=== PATIENT | male | born 1940 | race Caucasian/White ===

== ENCOUNTER 2022-01-25 09:36 | Outpatient (CLI) | payer MEDICARE, OTHER, SELFPAY ==
--- NOTE | 2022-01-25 09:45 | CRLHL7_ITS ---
For Patients: As a result of the Century Cures Act, medical imaging exams and procedure reports are released immediately into your electronic medical record. You may view this report before your referring provider. If you have questions, please contact your health care provider. INDICATION: stage 4 chronic kidney disease TECHNIQUE: Grayscale, color Doppler and power Doppler evaluation of the renal arteries performed. COMPARISON: 01/12/2020, 11/05/2013 FINDINGS: BILATERAL RENAL ARTERY DUPLEX ULTRASOUND ABDOMINAL AORTA: Peak systolic velocity = 106 cm/s. No aortic aneurysm. RIGHT KIDNEY: 8.7 Cm in length. There is no hydronephrosis. Renal cortex measures 1 cm. Peak systolic velocity = 179 cm/second at the proximal right renal artery. Renal artery to aortic peak systolic velocity ratio = 1.7 Resistive indices: 0.8 Renal vein = patent LEFT KIDNEY: 9.2 cm in length. There is no hydronephrosis. Renal cortex measures 9 millimeters. Peak systolic velocity = 86 cm/second Renal artery to aortic peak systolic velocity ratio = 0.8 Resistive indices: 0.8 Renal vein = patent IMPRESSION: Renal cortical atrophy bilaterally without hydronephrosis. Chronic elevation of the right renal artery peak systolic velocity measuring up to 179 cm/second at the proximal aspect. This is similar to the 2013 examination consistent with chronic mild renal artery stenosis. Normal velocities within the left renal artery. Elevated resistive indices consistent with intrinsic renal disease. Dictated by Gonzales Patel MD @ 01/25/2022 11:37:22 AM (Electronically Signed)
== END 2022-01-25 09:37 | disposition home or self-care (01) ==
LOC: US 09:39
PROVIDERS: PCP Family Medicine; Visit Provider Internal Medicine Nephrology
DX: N18.4 Chronic kidney disease, stage 4 (severe) (principal)
CPT/HCPCS: 76775; 93975

== ENCOUNTER 2022-12-04 12:43 | Outpatient (CLI) | payer MEDICARE, OTHER, SELFPAY ==
--- NOTE | 2022-12-04 13:00 | MR_ITS ---
[address] [address] Phone:?[phone] Fax:?[phone] Referring Physician Information: Dayton Archuleta M.D. [address] [facility] [address] Phone:?[phone] Fax:?[phone] Patient:Rivera Mesa D.O.B:?[id number] Sex:?Male Phone:?[phone] [facility] MRN:?[id number] Exam Date:?12/04/2022 EXAM: MRI OF THE RIGHT SHOULDER CLINICAL INFORMATION: The patient is an 82-year-old with right shoulder pain. Evaluate for rotator cuff tear. PRIOR SURGERY: None reported. COMPARISON STUDIES: There are no prior studies available for comparison. TECHNICAL INFORMATION: Using a 1.5T MR scanner and a localizing shoulder surface coil: 3.0 mm?coronal obliques: PD, T2, STIR 3.0 mm?sagittal obliques: PD, T2 3.0 mm?axials: PD, T2 FINDINGS: Articular/Extraarticular collections: Effusion: Mild. Subacromial/subdeltoid: Mild to moderate fluid is seen within the subacromial/subdeltoid bursa, in keeping with changes of bursitis. Subcoracoid: No evidence for bursitis. Osseous structures: Proximal humerus: Cortical irregularity and subcortical cystic changes can be seen involving the greater tuberosity region. The findings are in keeping with the rotator cuff pathology discussed below. There is no evidence for greater or lesser tuberosity fracture. No Hill-Sachs or reverse Hill-Sachs lesion is identified. Glenoid: No acute bony abnormality of the glenoid fossa or glenoid neck can be seen. Acromioclavicular joint: Mild to moderate changes of acromioclavicular joint arthrosis can be seen. Coracoacromial arch: Acromion morphology: Type I. No evidence for os acromiale. Acromiohumeral space: Within normal limits. Coracohumeral space: Within normal limits. Rotator cuff and deltoid: Supraspinatus: The supraspinatus tendon is abnormal in appearance. There are moderate changes of supraspinatus tendinosis with superimposed partial-thickness intrasubstance and deep surface tearing of the supraspinatus tendon fibers, seen to best advantage on coronal series 4 image 13 and measuring approximately 15 mm in greatest dimension. The tearing involves up to 50% of the tendon thickness. No full-thickness tearing or retraction is seen. No atrophic changes of the supraspinatus muscle belly are identified. Infraspinatus: Mild to moderate infraspinatus tendinosis can be seen. There is no evidence for full or partial-thickness tearing. No atrophic changes of the infraspinatus muscle belly are present. Teres minor: No evidence for tendinosis, tearing, or associated muscle belly atrophy. Subscapularis: Mild to moderate subscapularis tendinosis can be seen. There is no evidence for full or partial-thickness tearing. No atrophic changes of the subscapularis muscle belly are noted. Deltoid: No evidence for strain or tearing. Biceps tendon: The intra-articular and biceps sulcus portions of the biceps tendon are normal. There is no evidence for rupture, dislocation, or subluxation. Glenohumeral joint and labrum: Articular Cartilage: No well-defined full-thickness chondral defects are seen along the articular surfaces of the glenohumeral articulation. No definite osteoarthritic changes are present. Labrum: Degeneration, blunting, and irregularity of the glenoid labrum can be seen without definite areas of well-defined tearing. No paralabral ganglion cyst formation is seen. Capsular Soft Tissues: Nonspecific thickening of the capsular structures of the glenohumeral articulation can be seen in the region of the axillary recess and rotator cuff interval. The findings may relate to changes of adhesive capsulitis. CONCLUSION: 1. Supraspinatus tendinosis with superimposed partial-thickness intrasubstance and deep surface tearing of the supraspinatus tendon fibers. No full-thickness tearing or retraction is seen. 2. Mild to moderate infraspinatus and subscapularis tendinosis. 3. Mild to moderate acromioclavicular joint arthrosis. 4. No osteoarthritic changes of the glenohumeral articulation are seen. 5. Degeneration, blunting, and irregularity of the glenoid labrum. 6. Nonspecific capsular thickening, possibly related to adhesive capsulitis. 7. Mild glenohumeral joint effusion and mild to moderate subacromial/subdeltoid bursitis. AEC Electronically signed on 12/04/2022 3:22:00 PM by Romeo Henriquez M.D.
== END 2022-12-04 12:44 | disposition home or self-care (01) ==
LOC: MRI 12:46
PROVIDERS: PCP Family Medicine; Visit Provider Orthopaedic Surgery Sports Medicine
DX: M25.511 Pain in right shoulder (principal); M75.101 Unspecified rotator cuff tear or rupture of right shoulder, not specified as traumatic; M19.211 Secondary osteoarthritis, right shoulder; M75.01 Adhesive capsulitis of right shoulder; M25.411 Effusion, right shoulder
CPT/HCPCS: 73221

== ENCOUNTER 2023-01-02 11:15 | Outpatient (RCR) | payer MEDICARE, OTHER, SELFPAY ==
--- NOTE | 2022-12-14 10:03 | PT.OPEX ---
PT [place] [facility] Eval PT [facility] Outpatient Eval Start: 12/14/22 07:54 Freq: Status: Active Protocol: Document 12/14/22 07:55 AAKASH (Rec: 12/14/22 10:01 AAKASH [id number]) E-signed By Luh Helton, PT Physical Therapy Outpatient Evaluation Insurance Information Recert Due Date 03/10/23 Insurance Name Medicare B,[employer] Medical Diagnosis Right shoulder rotator cuff tear Treating Diagnosis Right shoulder pain, limited shoulder ROM, gross UE weakness Referring MD Archuleta Subjective Subjective Baldev presents to PT with primary complaint of right shoulder pain with initial onset July 2022 when he was reaching out to the side and felt a pop in his shoulder. Denies radicular symptoms. Was very limited with ROM but feels that has been gradually improving. Now still having pain with reaching up out to the side and rotating the shoulder out to the side. Mainly limited with playing pickleball, reaching into cupboard, having to modify how he reaches up to wash his hair. MRI of the right shoulder dated 12/04/2022 from [facility] shows following: Supraspinatus tendinosis with a partial-thickness (up to 50% ) intrasubstance and deep surface tearing. No full- thickness tearing evident. Mild to moderate infraspinatus and subscapularis tendinosis. Moderate AC joint arthrosis. No significant glenohumeral OA appreciated. Glenoid labral degenerative tearing and blunting. Mild glenohumeral joint effusion. Moderate subacromial/subdeltoid bursitis. Pain Comments 2-3/10 worst Date of Last Physician Visit 12/12/22 Current Work Status Retired Objective Other/Pertinent Objective Standing UE AROM (R/L): -ER0: 59/70 -Abd: 149/170 -FF: 126/159 -IR: T7/T7 UE Strength (R/L): -ER0: R: 4-/5, L: 5/5 -IR0: R: 5/5, L: 5/5 -FF: R: 4/5, L: 5/5 -Abduction: R: 4-/5, L: 4+/5 -Mid Trap: R: 4/5, L: 4+/5 -Lower Trap: R: 4-/5, L: 4/5 Special tests deferred d/t imaging results noted above Functional Test Performed & Score QuickDASH: 29.5% Assessment Assessment/Impression Patient is an 82 year old male presenting to physical therapy for evaluation and treatment of right shoulder pain. Patient presents with limited shoulder flexion, abduction and ER, shoulder weakness with R ER, abd, ff and periscapular B, poor postural positioning. These impairments are limiting the patients ability to play pickleball without pain, reach out to the side and into cupboards. Patient appears motivated to participate in PT and presents with good prognosis to improve mobility, strength, proprioception and return to functional activities with skilled physical therapy intervention. Primary Functional Limitations play pickleball without pain, reach out to the side and into cupboards Plan of Care Rehabilitation Potential Good Physical Therapy Goals Improve ER0 to 70 to improve ease of transfers and ADL's, by 6 weeks. Improve FF tolerance to increase ease of ADL's /daily care, by 6 weeks. Pt will tolerate gradual progression of AROM to facilitate progression through POC, by 8 weeks. Patient will exhibit full shoulder ROM, in order to facilitate greater ease with ADLs and progression through POC, by 12 weeks. Pt will exhibit RC and Scapular Stab strength of at least 4+/5 to allow progression back to normal and desired activities without pain, by 12 weeks. Patient will be independent in self-management of shoulder and shoulder related symptoms, by 12 weeks. Treatment Plan/Direct Interventions Ice/Cold/Vasopneumatic,Joint Mobilization,Manual Therapy, Neuromuscular Re-ed,Self-Care/ Home Management,Therapeutic Activities,Therapeutic Exercises Frequency/Duration 1x/wk for 6 weeks with additional 4 sessions prn based on progress Patient Will Be Discharged From Therapy Completion of LTG(s), Independent w/HEP, Independently Progressing Evaluation Billing Untimed Code Treatment Minutes 25 Complexity Low Certification Information Initial Certification Date 12/14/22 Ending Certification Date 03/10/23 Provider Signature Shows Agreement With POC & Medical Necessity Physician Signature & Date Requested Please Sign/Date Here Physician Comment/Change : Physician NPI Number #
== END 2023-03-30 15:57 | disposition home or self-care (01) ==
PROVIDERS: PCP Family Medicine; Visit Provider Orthopaedic Surgery Sports Medicine
DX: M75.101 Unspecified rotator cuff tear or rupture of right shoulder, not specified as traumatic (principal); M19.011 Primary osteoarthritis, right shoulder; M25.511 Pain in right shoulder; R53.1 Weakness; Z74.09 Other reduced mobility; Z51.89 Encounter for other specified aftercare
CPT/HCPCS: 97110; 97161

== ENCOUNTER 2024-04-20 11:15 | Inpatient (IN) | payer MEDICARE, SELFPAY ==
[2024-04-20 11:35] VITALS: BP 150/69; PULSE 48; RESP 16; TEMP 35.4; O2SAT 97; BMI 24.5
--- NOTE | 2024-04-20 11:53 | ED_ITS ---
HPI - General Adult General Date Seen: 04/20/24 Chief complaint: Unspecified Complaint, Adult Stated complaint: altered mental status Time Seen by Provider: 04/20/24 11:53 History of Present Illness HPI narrative: This is an 83-year-old male presenting to the ER today with his family. They are concerned about and new altered mental status. He has been more drowsy than normal and has had a new tremor for the past few weeks. He does not have any previous records in our [facility]. He does have records in the [facility] system. According to that record he has a history of hypertension, high cholesterol, renal artery stenosis, renal hyperparathyroidism , hyperkalemia, chronic stage 4 kidney disease. Creatinine was 4.22 and BUN was 74 on February 18. Prior to that creatinine was 3.92 and BUN was 64 on November 27. He apparently follows with a kidney specialist but is not on dialysis yet. The most recent. Family practice progress note was from January. No mention of kidney function for that noted above. Most recent nephrology note in the [email or web address] system was from june. Patient presents to the ER today with his son for evaluation of generalized fatigue, insomnia, and tremor. Patient notes that he has had a mild tremor affecting both sides of his body that started about 10 or 12 days ago on roughly April 08 (2 or 3 days after his most recent concert). It is also associated with some mild gait instability. But no falls. No focal weakness or numbness. Also for the past several days he has no difficulty sleeping. He is not anxious or having mind racing or any other symptoms that keep him up. He just can not fall asleep. For instance, 3 days ago, on he was up till 4 or 5:00 a.m. and then was sleeping all morning until about 10 30 when his son came to check on him. With his sleepiness is he has just had some generalized fatigue. He normally plays pickleball 3 times per week, but has been able to go play pickleball since last Sunday. He is not having any focal weakness. No numbness. No headache. No trouble with his vision. He is not having any chest pain. No palpitations. No trouble breathing. He does have some chronic peripheral edema with a trace of edema in both ankles that is stable and not worse or better lately. He does takes torsemide 20 mg daily because of his kidney disease. He can not recall for sure when the last time he saw his search engine optimization specialist but probably in January. He is due for a checkup every 3 or 4 months. He has not had any trouble with urination. Is normal yellow urine output. Bowel movements have been normal and brown. No diarrhea or constipation. No black or bloody stools. No abdominal pain. Appetite has been normal. No nausea vomiting. No falls. No head trauma. He does not take any anticoagulants. No recent cough. No fever. Related Data Home Medications ?Medication ?Instructions ?Recorded ?Confirmed amlodipine 5 mg tablet 10 mg PO DAILY 11/22/22 04/20/24 atenolol 50 mg tablet 50 mg PO QDAY 11/22/22 04/20/24 atorvastatin 10 mg tablet 20 mg PO QDAY 11/22/22 04/20/24 carvedilol 12.5 mg tablet 12.5 mg PO Q12H 11/23/22 04/20/24 losartan 50 mg tablet 25 mg PO DAILY 04/20/24 04/20/24 torsemide 20 mg tablet 20 mg PO DAILY 04/20/24 04/20/24 Allergies Allergy/AdvReac Type Severity Reaction Status Date / Time No Known Drug Allergies Allergy Verified 04/20/24 11:47 [facility] Medical History (Updated 04/20/24 @ 15:01 by Devika Ochoa MD) Renal artery stenosis ?I70.1 - Atherosclerosis of renal artery (ICD-10) Prediabetes ?R73.03 - Prediabetes (ICD-10) Essential hypertension ?I10 - Essential (primary) hypertension (ICD-10) Anemia in chronic kidney disease (CKD) ?N18.9 - Chronic kidney disease, unspecified (ICD-10) ?D63.1 - Anemia in chronic kidney disease (ICD-10) CKD (chronic kidney disease) stage 5, GFR less than 15 ml/min ?N18.5 - Chronic kidney disease, stage 5 (ICD-10) Elevated cholesterol ?E78.00 - Pure hypercholesterolemia, unspecified (ICD-10) Hypertension ?I10 - Essential (primary) hypertension (ICD-10) Surgical History (Updated 04/20/24 @ 15:01 by Devika Ochoa MD) History of renal angiogram ?Z86.79 - Personal history of other diseases of the circulatory system (ICD- 10) History of tonsillectomy and adenoidectomy ?Z90.89 - Acquired absence of other organs (ICD-10) History of phacoemulsification of cataract of right eye with intraocular lens implantation (03/11/14) ?Z98.41 - Cataract extraction status, right eye (ICD-10) ?Z96.1 - Presence of intraocular lens (ICD-10) History of phacoemulsification of cataract of left eye with intraocular lens implantation (03/24/14) ?Z98.42 - Cataract extraction status, left eye (ICD-10) ?Z96.1 - Presence of intraocular lens (ICD-10) History of YAG laser capsulotomy of lens of right eye (08/02/16) ?Z98.41 - Cataract extraction status, right eye (ICD-10) History of YAG laser capsulotomy of lens of left eye (12/11/18) ?Z98.42 - Cataract extraction status, left eye (ICD-10) Exam Narrative: Exam Narrative: Constitutional: Appears well-developed and well-nourished. Alert. Conversant but somewhat slow and thoughtful in his responses. Son help supplement his history. Overall, he is Non toxic. HENT: Head: Atraumatic. Nose: Nose normal. Mouth/Throat: Oral mucosa is clear and moist. no trismus. Pharynx normal. Tonsils symmetric. No tonsillar enlargement, erythema, or exudate. Eyes: Conjunctivae normal. EOM normal. Pupils equal, round, and reactive to light. No scleral icterus. Neck: Normal range of motion. Neck supple. No tracheal deviation present. No JVD Cardiovascular: Bradycardic, regular rhythm. No gallop. No friction rub. No murmur heard. Symmetric radial artery pulses Pulmonary/Chest: Effort normal. No stridor. No respiratory distress. No wheezes. No rales. No rhonchi . No tenderness. Abdominal: Soft. No distension. No mass. No tenderness. No rebound. No guarding. Musculoskeletal: RUE: Normal range of motion. No tenderness. No deformity LUE: Normal range of motion. No tenderness. No deformity RLE: Normal range of motion. Trace edema. No tenderness. No deformity LLE: Normal range of motion. Trace edema. No tenderness. No deformity Neurological: Alert and oriented to person, place, and time. Normal strength. CN II-VII intact. No sensory deficit. GCS eye subscore is 4. GCS verbal subscore is 5. GCS motor subscore is 6. Normal coordination Skin: Skin is warm and dry. No rash noted. No pallor. Normal capillary refill. Psychiatric: Normal mood. Normal affect. Const: Vital Signs, click to edit/add: Vital Signs - 24 hr 04/20/24 11:35 04/20/24 14:25 Temperature 95.7 F L 95.6 F L Pulse Rate [Pulse Oximeter] 48 L 50 L Respiratory Rate 16 Blood Pressure [Ri t Upper Arm] 150/69 H 117/72 Pulse Oximetry 97 97 Oxygen Delivery Me thod Room Air Room Air Course Vital Signs Vital signs: Initial Vital Signs Temperature 95.7 F L 04/20/24 11:35 Temperature Source Temporal Artery Scan 04/20/24 11:35 Pulse Rate 48 L 04/20/24 11:35 Respiratory Rate 16 04/20/24 11:35 Blood Pressure 150/69 H 04/20/24 11:35 Blood Pressure Mean 96 04/20/24 11:35 Blood Pressure Position Sitting 04/20/24 11:35 Pulse Oximetry 97 04/20/24 11:35 Oxygen Delivery Method Room Air 04/20/24 11:35 Vital Signs Temperature 95.7 F L 04/20/24 11:35 Pulse Rate 48 L 04/20/24 11:35 Respiratory Rate 16 04/20/24 11:35 Blood Pressure 150/69 H 04/20/24 11:35 Pulse Oximetry 97 04/20/24 11:35 Oxygen Delivery Method Room Air 04/20/24 11:35 Temperature 95.6 F L 04/20/24 14:25 Pulse Rate 50 L 04/20/24 14:25 Respiratory Rate 16 04/20/24 11:35 Blood Pressure 117/72 04/20/24 14:25 Pulse Oximetry 97 04/20/24 14:25 Oxygen Delivery Method Room Air 04/20/24 14:25 Medications Administered Medications: Discontinued Medications Generic Name Dose Route Start Last Admin Trade Name Freq PRN Reason Stop Dose Admin Sodium Zirconium Cyclosilicate 10 gm 04/20/24 14:41 04/20/24 15:06 Sodium Zirconium Cyclosilicate 10 Gm PO 04/20/24 14:42 10 gm ONCE ONE Administration Medical Decision Making MDM Narrative Medical decision making narrative: Very pleasant 83-year-old gentleman presenting to the ER today with his family for evaluation of some generalized fatigue, insomnia, mild tremor are and nonfocal shakiness all slowly progressing over the past couple of weeks. He does not really have any other symptoms to clearly localize the source for his fatigue. He does look slightly pale in his hands on my exam, prompting hemoglobin checked. Hemoglobin today is 10.0. Baseline hemoglobin from January was 11.1. Down slightly. No recent black or bloody stools. No nosebleeds. No other unusual bruising or bleeding. He is not anticoagulated He has a history of chronic stage 4 kidney disease, not yet on dialysis. BUN from January was 74 and creatinine was 4.22. Recheck today shows essentially stable creatinine at 4.1 but BUN is rising up to 95. He also has new hyperkalemia with a potassium up to 5.7. EKG does show sinus bradycardia with a significant first-degree AV block but no peaked T-waves, significant QRS widening or sign wave sign. Lokelma ordered here in the ER. IV saline ordered here in the ER. Will hold off on additional diuretic due to the risk of causing worsening renal failure. With the patient's rising BUN and elevated potassium I do think he needs to be admitted. Discussed with our hospitalist, Dr. Ochoa. She agrees to admit him here in [place], at least for a trial overnight with IV fluids and monitoring in hopes that his labs will correct, potassium will come down, BUN and creatinine my come down. If labs failed to correct he may require transfer to a nephrology capable facility to initiate dialysis. It sounds like he has been following with a search engine optimization specialist through the [email or web address] system for the past couple of years and has been on the cusp of starting dialysis for several months. He is not having any flank pain or abdominal pain to suggest any obstructing kidney stone so would hold off on abdomen imaging at this point. He is urinating in produce urine sample which shows no sign of infection here in the ER. No evidence for any post renal obstruction causing acute on chronic renal failure. With his generalized fatigue, consider possible hypo thyroidism. TSH is elevated at 9.15 but free T4 is normal. At this point no clear hypothyroidism requiring levothyroxine administration. Lab Data Labs: Lab Results 04/20/24 04/20/24 Range/Units 12:20 13:30 WBC 4.44 L (4.50-11.00) K/uL RBC 3.47 L (4.30-5.90) m/uL Hgb 10.0 L (13.5-17.5) gm/dL Hct 31.6 L (37.0-53.0) % MCV 91 (80-100) fL MCH 29 (26-34) pg MCHC 32 (32-36) gm/dL RDW Coeff of Flaco 15.7 H (11.5-15.5) % Plt Count 104 L (140-440) K/uL Neut % (Auto) 67.9 (42.0-72.0) % Lymph % (Auto) 19.4 L (20-44) % [place] % (Auto) 10.6 (0.0-11.0) % Eos % (Auto) 1.1 (0.0-7.0) % Baso % (Auto) 0.5 (0.0-3.0) % Neut # (Auto) 3.00 (1.7-7.0) K/uL Lymph # (Auto) 0.90 (0.90-2.90) K/uL [place] # (Auto) 0.50 (0.00-0.90) K/UL Eos # (Auto) 0.00 (0.00-0.50) K/uL Baso # (Auto) 0.00 (0.00-0.30) K/uL Abs Immat Gran (auto) 0.00 (0.00-0.30) K/uL Imm/Tot Granulo (auto) 0.5 % Sodium 143 (135-149) mmol/L Potassium 5.7 H (3.6-5.1) mmol/L Chloride 117 H (96-114) mmol/L Carbon Dioxide 19 L (20-32) mmol/L Anion Gap 7 (7-15) mEq/L BUN 95 H (7-30) mg/dL Creatinine 4.1 H (0.5-1.5) mg/dL Estimated Creat Clear 14.46 Estimated GFR 14 ml/min Glucose 84 (60-115) mg/dL Lactate 0.6 (0.5-1.9) mmol/L Calcium 8.9 (8.4-10.6) mg/dL Total Bilirubin 0.4 (0.1-1.5) mg/dL AST 74 H (12-35) U/L ALT 98 H (4-50) U/L Alkaline Phosphatase 56 (40-150) U/L Troponin I < 0.01 L (0.01-0.04) ng/mL Total Protein 7.0 (6.0-8.3) g/dL Albumin 4.2 (3.3-5.0) g/dL TSH 9.150 H (0.270-4.200) uIU/mL Free T4 0.77 (0.70-1.85) ng/dL Urine Color Light yellow (Yellow) Urine Appearance Clear (Clear) Urine pH 5.5 (5.0-8.5) Ur Specific [place] 1.015 (1.000-1.030) Urine Protein 1+ A (Negative) Urine Glucose (UA) Negative (Negative) Urine Ketones Negative (Negative) Urine Blood Trace-intact A (Negative) Urine Nitrite Negative (Negative) Urine Bilirubin Negative (Negative) Urine Urobilinogen 0.2 (0.2-1.0) Ur Leukocyte Esterase Negative (Negative) Urine RBC 0-2 (0-2) Urine WBC 0-2 (0-5) Ur Squamous Epith Cells Few (None-Few) Urine Bacteria None (None) ECG Data Interpretation: Sinus bradycardia. First-degree AV block Rate: 47 VA: 320-360. No VA depression QRS axis: Wide QRS complex. Right bundle-branch block pattern. Artifact in lead V3. ST segment/T wave: No ST segment elevation or depression. No peaked T-waves. QTc: 470 Discharge Plan Discharge Clinical Impression: Renal failure, acute on chronic, Hyperkalemia Prescriptions: No Action amlodipine 5 mg tablet 10 mg PO DAILY atorvastatin 10 mg tablet 20 mg PO QDAY atenolol 50 mg tablet 50 mg PO QDAY carvedilol 12.5 mg tablet 12.5 mg PO Q12H losartan 50 mg tablet 25 mg PO DAILY torsemide 20 mg tablet 20 mg PO DAILY Follow Up/Referrals: Artem Cortez MD [Primary Care Provider] -
[2024-04-20 12:30] LABS: Basophils Percent Auto 0.5 % (0.0-3.0); Eosinophils Percent Auto 1.1 % (0.0-7.0); Hematocrit 31.6 % (37.0-53.0); Immature Granulocytes Pct Auto 0.5 %; Lymphocytes Percent Auto 19.4 % (20-44); Mean Corpuscular HGB Conc 32 gm/dL (32-36); Mean Corpuscular Hemoglobin 29 pg (26-34); Mean Corpuscular Volume 91 fL (80-100); Monocytes Percent Auto 10.6 % (0.0-11.0); Neutrophils Percent Auto 67.9 % (42.0-72.0); Platelet Count* 104 K/uL (140-440); RDW Coefficient of Variation % 15.7 % (11.5-15.5); Red Blood Count 3.47 m/uL (4.30-5.90); White Blood Count* 4.44 K/uL (4.50-11.00)
[2024-04-20 12:35] LABS: Slide Review Reflex No
[2024-04-20 12:41] LABS: Lactate* 0.6 mmol/L (0.5-1.9)
[2024-04-20 13:07] LABS: Albumin* 4.2 g/dL (3.3-5.0)
[2024-04-20 13:08] LABS: Chloride* 117 mmol/L (96-114); Potassium* 5.7 mmol/L (3.6-5.1); Sodium* 143 mmol/L (135-149)
[2024-04-20 13:10] LABS: Bilirubin Total* 0.4 mg/dL (0.1-1.5); Creatinine* 4.1 mg/dL (0.5-1.5); Est. Creatinine Clearance* 14.46; Estimated Glomerular Filt Rate 14 ml/min
[2024-04-20 13:11] LABS: Alanine Aminotransferase* 98 U/L (4-50); Alkaline Phosphatase* 56 U/L (40-150); Anion Gap 7 mEq/L (7-15); Aspartate Amino Transferase* 74 U/L (12-35); Blood Urea Nitrogen* 95 mg/dL (7-30); Calcium* 8.9 mg/dL (8.4-10.6); Carbon Dioxide* 19 mmol/L (20-32); Glucose* 84 mg/dL (60-115)
[2024-04-20 13:25] LABS: Troponin I* < 0.01 ng/mL (0.01-0.04)
[2024-04-20 13:50] LABS: Appearance Urine Clear (Clear); Bilirubin Urine Negative (Negative); Blood Urine Trace-intact (Negative); Color Urine Light yellow (Yellow); Glucose Urine Negative (Negative); Ketones Urine Negative (Negative); Leukocyte Esterase Urine Negative (Negative); Nitrite Urine Negative (Negative); Protein Urine 1+ (Negative); Specific Gravity Urine 1.015 (1.000-1.030); Urobilinogen Urine 0.2 (0.2-1.0); pH Urine 5.5 (5.0-8.5)
[2024-04-20 14:03] LABS: RBC Urine 0-2 (0-2); Squamous Epithelial Cell Urine Few (None-Few); WBC Urine 0-2 (0-5)
[2024-04-20 14:25] VITALS: BP 117/72; PULSE 50; TEMP 35.3; O2SAT 97
[2024-04-20 14:35] LABS: Free T4 Free Thyroxine* 0.77 ng/dL (0.70-1.85)
--- NOTE | 2024-04-20 14:48 | PM.IMHP1 ---
Hospitalist- H&P: HPI History of Present Illness Date Seen: 04/20/24 Chief complaint: altered mental status Narrative: Baldev Mesa is a 83 year old male with CKD who presented to the ER today for fatigue, insomnia, new tremor. He's been feeling more tired over the past 1-2 weeks, sleeping later. Hasn't had the energy to play pickleball for the past week. During the same time frame, noting insomnia. No associated orthopnea or palpitations. Denies nighttime anxiety. Tremor has also been noted in that time frame; intermittent, bilateral upper extremities. Writing has been more difficult. Able to eat and drink without difficulty. History of CKD, stage 5. Has discussed PD with his Loss Control Manager. Takes Torsemide daily and follows a low potassium diet very closely. ER Course and Findings: - Creatinine 4.1, Co2 19, K 5.7, no peaked T waves on EKG - Hgb 10 (baseline), WBC 4.4, platelets 104 - AST 74, ALT 98 - received Lokelma x1 - TSH 9, normal T4 Histories updated below. Dr. Cortez is PCP, Dr. Garland is Loss Control Manager. Last saw Dr. Garland in February 2024. Review of Systems Narrative: - no recent illness - no focal weakness, numbness, headache - vision baseline - specifically denies CP, back pain, breathing trouble - no GI or concerns/symptoms PFSH PFSH Medical History (Updated 04/20/24 @ 18:37 by Devika Ochoa MD) Renal artery stenosis ?I70.1 - Atherosclerosis of renal artery (ICD-10) Prediabetes ?R73.03 - Prediabetes (ICD-10) Essential hypertension ?I10 - Essential (primary) hypertension (ICD-10) Anemia in chronic kidney disease (CKD) ?N18.9 - Chronic kidney disease, unspecified (ICD-10) ?D63.1 - Anemia in chronic kidney disease (ICD-10) CKD (chronic kidney disease) stage 5, GFR less than 15 ml/min ?N18.5 - Chronic kidney disease, stage 5 (ICD-10) Elevated cholesterol ?E78.00 - Pure hypercholesterolemia, unspecified (ICD-10) Hypertension ?I10 - Essential (primary) hypertension (ICD-10) Surgical History (Updated 04/20/24 @ 15:01 by Devika Ochoa MD) History of renal angiogram ?Z86.79 - Personal history of other diseases of the circulatory system (ICD-10) History of tonsillectomy and adenoidectomy ?Z90.89 - Acquired absence of other organs (ICD-10) History of phacoemulsification of cataract of right eye with intraocular lens implantation (03/11/14) ?Z98.41 - Cataract extraction status, right eye (ICD-10) ?Z96.1 - Presence of intraocular lens (ICD-10) History of phacoemulsification of cataract of left eye with intraocular lens implantation (03/24/14) ?Z98.42 - Cataract extraction status, left eye (ICD-10) ?Z96.1 - Presence of intraocular lens (ICD-10) History of YAG laser capsulotomy of lens of right eye (08/02/16) ?Z98.41 - Cataract extraction status, right eye (ICD-10) History of YAG laser capsulotomy of lens of left eye (12/11/18) ?Z98.42 - Cataract extraction status, left eye (ICD-10) Social History (Updated 04/20/24 @ 16:40 by Devika Ochoa MD) Narrative: , lives independently with . director cardiac. Son Pillo would be MDM if needed. Nonsmoker, no tobacco use. Full Code What is your current living situation?: I presently have a place to live Problems where you live: no known problems Problems where you live details: N/A In the past 12 months, utilities in danger of being shut off: no In past 12 months, lack of transportation kept you from medical appts, meetings, work, or getting things needed for daily living: no In the past 12 mos, have been you worried that your food would run out before you had money to buy more?: never true In the past 12 mos, the food you bought just didn't last and you didn't have money to buy more?: never true Highest level of school completed/degree received: Master's degree Smoking Status: Never smoker How often do you have a drink containing alcohol: monthly or less AUDIT-C Alcohol total score: 1 Non-prescribed substance use: denies use How often does anyone, including family, friends and others, physically hurt you: never How often does anyone, including family, friends and others, insult or talk down to you: never How often does anyone, including family, friends and others, threaten you with harm: never How often does anyone, including family, friends and others, scream or curse at you: never service: No Meds Home Medications and Allergies Home Medications ?Medication ?Instructions ?Recorded ?Confirmed ?Type carvedilol 12.5 mg tablet 12.5 mg PO Q12H 11/23/22 04/20/24 History amlodipine 10 mg tablet 10 mg PO DAILY 04/20/24 04/20/24 History atorvastatin 20 mg tablet 20 mg PO DAILY 04/20/24 04/20/24 History losartan 50 mg tablet 25 mg PO DAILY 04/20/24 04/20/24 History torsemide 20 mg tablet 20 mg PO DAILY 04/20/24 04/20/24 History Allergies Allergy/AdvReac Type Severity Reaction Status Date / Time No Known Drug Allergies Allergy Verified 04/20/24 11:47 Exam Narrative: Exam Narrative: GEN: Alert and oriented, sitting up comfortably in bed and answering questions appropriately HEENT: PERRL and EOMIs bilaterally, no scleral icterus. Oropharyx moist and clear, tongue protrudes midline CV: RRR, No concerning murmurs R: LCTA bilaterally without concerning wheezing, air movement adequate Back: normal contours, no ttp Ext: wwp, trace edema BLE Skin: Scattered SKs, no concerning skin lesions or rashes on exposed skin Neuro: Intermittently noted fine tremor of BUE, R>L. No dysmetria on finger to nose testing Psych: Appropriate, no cognitive impairment or agitation Const: Vital Signs, click to edit/add: Vital Signs - 24 hr 04/20/24 11:35 04/20/24 14:25 Temperature 95.7 F L 95.6 F L Pulse Rate [Pulse Oximeter] 48 L 50 L Respiratory Rate 16 Blood Pressure [Ri ght Upper Arm] 150/69 H 117/72 Pulse Oximetry 97 97 Oxygen Delivery Me thod Room Air Room Air Hospitalist - H&P: Result Labs Labs: Short CBC 04/20/24 Range/Units 12:20 WBC 4.44 L (4.50-11.00) K/uL Hgb 10.0 L (13.5-17.5) gm/dL Hct 31.6 L (37.0-53.0) % Plt Count 104 L (140-440) K/uL BMP 04/20/24 12:20 Sodium 143 Potassium 5.7 H Chloride 117 H Carbon Dioxide 19 L BUN 95 H Creatinine 4.1 H Glucose 84 Calcium 8.9 Cardiac Enzymes 04/20/24 Range/Units 12:20 Troponin I < 0.01 L (0.01-0.04) ng/mL Liver Function 04/20/24 Range/Units 12:20 Total Bilirubin 0.4 (0.1-1.5) mg/dL AST 74 H (12-35) U/L ALT 98 H (4-50) U/L Alkaline Phosphatase 56 (40-150) U/L Albumin 4.2 (3.3-5.0) g/dL Urine 04/20/24 Range/Units 13:30 Urine Color Light yellow (Yellow) Urine Appearance Clear (Clear) Urine pH 5.5 (5.0-8.5) Ur Specific [place] 1.015 (1.000-1.030) Urine Protein 1+ A (Negative) Urine Glucose (UA) Negative (Negative) Assessment and Plan Assessment and plan (1) Hyperkalemia: Problem comment: - 2/2 CKD - received Lokelma 04/20 - requires monitoring with serial BMPs and telemetry - continue Torsemide Status: Acute (2) CKD (chronic kidney disease) stage 5, GFR less than 15 ml/min: Problem comment: - GFR baseline 15-20 (last GFR 13 in February 2024) - 2/2 HTN, Renal artery stenosis - resultant secondary hyperparathyroidism, hyperkalemia - Gill is Loss Control Manager, they have discussed dialysis in the past - will need close f/u with Renal to discuss acceleration of dialysis initiation given acidosis and hyperkalemia Status: Acute (3) Pancytopenia: Problem comment: - new diagnosis, unclear chronicity (normal CBC 2019) - no ETOH use, no recent illness - outpatient f/u Status: Acute (4) Elevated TSH: Problem comment: - TSH 9 on 04/20, normal T4 - will not initiate treatment given age and normal T4, close PCP f/u Status: Acute Plan - per above - home with with close outpatient renal f/u pending improvement in potassium
[2024-04-20] MEDS: SODIUM ZIRCONIUM CYCLOSILICATE 10 GM PO (15:06)
[2024-04-20] MEDS: 0.9 % SODIUM CHLORIDE 500 ML 500 ML IV (15:26)
[2024-04-20 17:08] VITALS: BP 127/72; PULSE 51; RESP 16; TEMP 36.1; O2SAT 98; BMI 24.9
[2024-04-20 18:14] LABS: Chloride* 113 mmol/L (96-114); Sodium* 142 mmol/L (135-149)
[2024-04-20 18:15] LABS: Potassium* 5.3 mmol/L (3.6-5.1)
[2024-04-20 18:17] LABS: Anion Gap 11 mEq/L (7-15); Blood Urea Nitrogen* 92 mg/dL (7-30); Carbon Dioxide* 18 mmol/L (20-32); Est. Creatinine Clearance* 14.82; Estimated Glomerular Filt Rate 14 ml/min
[2024-04-20 18:18] LABS: Calcium* 8.6 mg/dL (8.4-10.6); Glucose* 151 mg/dL (60-115)
[2024-04-20] MEDS: carvediloL 6.25 MG TABLET 12.5 MG PO (18:34)
[2024-04-20 19:26] VITALS: BP 123/68; PULSE 50; RESP 16; TEMP 35.6; O2SAT 97
--- NOTE | 2024-04-20 20:01 | PC.NURSE ---
End of Shift: Patient admitted to 255. Pleasant and cooperative. Afebrile. Denies pain. Up with SBA. Tolerating regular diet with no nausea.
[2024-04-20] MEDS: SODIUM CHLORIDE 0.9 % (FLUSH) 10 ML SYRINGE 5 ML IVF (20:46)
[2024-04-20 22:21] VITALS: PULSE 55
[2024-04-20 23:00] VITALS: PULSE 55; RESP 16
--- NOTE | 2024-04-21 00:54 | PC.NURSE ---
Brand Recorder refusing to keep telemetry on at this time. This RN provided education that tele has been ordered by MD and why it has been ordered- to continuously monitor heart rate and rhythm but pt stated, I'm here because I can't sleep. This box being attached to me is making it hard to sleep and is counterproductive. Pt refusing to wear hospital gown and so there is no pocket to keep monitoring manager in. Pt also refusing gripper socks and scheduled VS throughout the night stating, I don't think that's necessary despite education/reapproaching. Brand Recorder has discussed PRN Melatonin with pt though he is declining to take at this time. MD Ochoa updated.
[2024-04-21 02:51] VITALS: RESP 18
[2024-04-21 06:05] VITALS: BP 153/81; PULSE 57; TEMP 36.2
[2024-04-21] MEDS: carvediloL 6.25 MG TABLET 12.5 MG PO (06:07)
--- NOTE | 2024-04-21 06:29 | PC.NURSE ---
End of shift note [id number]: Pt alert & oriented x 4. He transfers/ambulates independently and has been denying pain when asked. No N/V or CP. Pt non-compliant with allowing RN to check VS overnight and refused to leave telemetry on mid-shift despite education provided. He did allow for B/P and pulse check before administering AM dose of Coreg. MD Ochoa updated regarding refusal of VS and refusal to leave tele on. Pt continent of bladder. Pt denying pain when asked. Telemetry reading noted to be sinus bradycardia with first degree block, wide QRS and prolonged QT. Pt has intermittent tremor noted to bilateral upper extremities which has been present for ?a couple of weeks? per pt report. Pt reports he slept well overnight. Call light within reach.
[2024-04-21 06:44] LABS: Basophils Absolute Auto 0.02 K/uL (0.00-0.30); Basophils Percent Auto 0.4 % (0.0-3.0); Eosinophils Absolute Auto 0.07 K/uL (0.00-0.50); Eosinophils Percent Auto 1.5 % (0.0-7.0); Hematocrit 30.1 % (37.0-53.0); Hemoglobin* 9.5 gm/dL (13.5-17.5); Immature Granulocytes Abs Auto 0.04 K/uL (0.00-0.30); Immature Granulocytes Pct Auto 0.8 %; Lymphocytes Percent Auto 19.2 % (20-44); Mean Corpuscular HGB Conc 32 gm/dL (32-36); Mean Corpuscular Hemoglobin 29 pg (26-34); Mean Corpuscular Volume 91 fL (80-100); Monocytes Percent Auto 10.7 % (0.0-11.0); Neutrophils Absolute Auto 3.22 K/uL (1.7-7.0); Neutrophils Percent Auto 67.4 % (42.0-72.0); Platelet Count* 101 K/uL (140-440); RDW Coefficient of Variation % 15.8 % (11.5-15.5); Red Blood Count 3.31 m/uL (4.30-5.90); White Blood Count* 4.78 K/uL (4.50-11.00)
[2024-04-21 06:49] LABS: Slide Review Reflex No
[2024-04-21 07:00] VITALS: BP 120/79; PULSE 57; PULSE 58; RESP 16; TEMP 36.3; O2SAT 94
[2024-04-21 07:01] LABS: Albumin* 3.7 g/dL (3.3-5.0); Chloride* 117 mmol/L (96-114); Sodium* 143 mmol/L (135-149)
[2024-04-21 07:02] LABS: Potassium* 5.6 mmol/L (3.6-5.1)
[2024-04-21 07:04] LABS: Alanine Aminotransferase* 71 U/L (4-50); Alkaline Phosphatase* 51 U/L (40-150); Anion Gap 6 mEq/L (7-15); Aspartate Amino Transferase* 62 U/L (12-35); Bilirubin Total* 0.4 mg/dL (0.1-1.5); Blood Urea Nitrogen* 91 mg/dL (7-30); Carbon Dioxide* 20 mmol/L (20-32); Creatinine* 4.1 mg/dL (0.5-1.5); Est. Creatinine Clearance* 14.46; Estimated Glomerular Filt Rate 14 ml/min
[2024-04-21 07:05] LABS: Calcium* 8.7 mg/dL (8.4-10.6); Glucose* 74 mg/dL (60-115); Phosphorus* 5.2 mg/dL (2.5-4.5)
[2024-04-21 07:38] LABS: HCO3 VBG 21 mmol/L (21-28); PCO2 VBG 40 mmHG (40-50); PO2 VBG 34.7 mmHG (25-47); pH VBG 7.338 (7.32-7.43)
[2024-04-21] MEDS: TORSEMIDE 20 MG TABLET PO (08:46)
[2024-04-21] MEDS: ATORVASTATIN 10 MG TABLET 20 MG PO (08:46)
[2024-04-21] MEDS: AMLODIPINE 10 MG TABLET PO (08:46)
[2024-04-21] MEDS: SODIUM ZIRCONIUM CYCLOSILICATE 10 GM PO (08:46)
[2024-04-21 11:00] VITALS: BP 128/76; PULSE 55; RESP 18; O2SAT 95
[2024-04-21] MEDS: SODIUM CHLORIDE 0.9 % (FLUSH) 10 ML SYRINGE 5 ML IVF (11:22)
[2024-04-21] MEDS: SODIUM BICARBONATE 650 MG TABLET PO (12:14)
--- NOTE | 2024-04-21 12:37 | PC.NURSE ---
Pt discharged @ 1233 via wheelchair back to home, accompanied by son and daughter. Discharge forms signed. Belongings signed. IV removed. Pt AxOx4, no nausea or pain present on discharge. Pt will be coming in for a lab draw in the am of 04/22/24.
--- NOTE | 2024-04-21 14:44 | P.DS_ITS ---
DS: Providers Provider Date Seen: 04/21/24 Date of admission: 04/21/24 08:46 Primary care physician: Artem Cortez MD Admitting Clinician: Anil Gomez MD Attending Physician on discharge: Anil Gomez MD Date of Discharge: 04/21/24 DS: Diagnosis Discharge Diagnosis (1) Hyperkalemia: Status: Acute Problem details: Chronic problem related to chronic kidney disease that has gotten worse. Most recent outpatient potassium was 5.5. 5.7 on admission. 5.6 this morning. Started on Lokelma. Losartan discontinued. Close outpatient follow-up of labs. Appointment with radio intelligence operator on May 02 (2) Metabolic acidosis: Status: Acute Problem details: Chronic problem related to kidney disease. Started on sodium bicarb. Close outpatient follow-up with labs. Appointment with radio intelligence operator on May 02 (3) Anemia in chronic kidney disease (CKD): Status: Acute Problem details: - outpatient Hgb 10-12 secondary to chronic kidney disease (4) Pancytopenia: Status: Acute Problem details: Chronic anemia but now has platelet count of 101. White blood count of 4.4. Outpatient follow-up. (5) Elevated TSH: Status: Acute Problem details: - TSH 9 on 04/20, normal T4 - will not initiate treatment given age and normal T4, close PCP f/u. Uncertain if this is contributing to symptoms. (6) Essential hypertension: Status: Acute Problem details: Continue home meds except discontinue losartan pending follow-up with Nephrology (7) CKD (chronic kidney disease) stage 5, GFR less than 15 ml/min: Status: Acute Problem details: - GFR baseline 15-20 (last GFR 13 in February 2024) - 2/2 HTN, Renal artery stenosis - resultant secondary hyperparathyroidism, hyperkalemia - [place] is [employer] Tapping Machine Operator, they have discussed dialysis in the past - will need close f/u with Renal to discuss acceleration of dialysis initiation given acidosis and hyperkalemia (8) Insomnia: Status: Acute Problem details: Trouble initiating sleep at night. Start melatonin. Avoid daytime naps. Outpatient follow-up (9) Fatigue: Status: Acute Problem details: Suspected to be due to advanced kidney disease. Outpatient follow-up. (10) Impairment of balance: Status: Acute Problem details: Outpatient PT recommended (11) Cognitive impairment: Status: Acute Problem details: [place] of . Outpatient follow-up DS: Summary Hospital Course Hospital Course: 83-year-old male admitted to the hospital after presenting the Emergency Department with a couple weeks of fatigue insomnia poor balance. In the emergency department he was found to have worsening of his chronic kidney disease. Based on hyperkalemia, metabolic acidosis, hyperphosphatemia he was admitted to the hospital for management of these. Started on Lokelma 10 mg daily for hyperkalemia, sodium bicarb for metabolic acidosis and losartan was discontinued. His labs were relatively stable after initial treatment. I recommended another day in the hospital to see some clinical improvement but he was anxious to go home. Will follow-up tomorrow and on Sunday for more labs that I can follow-up with him. Appointment with Nephrology on May 02. Status at Discharge Overall status at discharge: patient is progressing back to baseline Time Spent with Patient Time attestation: Total time spent providing and/or coordinating discharge services: 40 minutes Time spent: Greater than 30 minutes Exam Narrative: Exam Narrative: He is alert and appears in no distress. Speech is normal. No facial asymmetry. Symmetric strength in all 4 extremities. He is observed to walk fairly well. Respirations are clear to auscultation. Cardiovascular: S1, S2, regular rate and rhythm. Const: Vital Signs, click to edit/add: Vital Signs - 24 hr 04/20/24 17:08 04/20/24 19:26 04/20/24 22:21 Temperature 97.0 F L 96.1 F L Pulse Rate 55 L Pulse Rate [Left P ulse Oximeter] 51 L 50 L Respiratory Rate 16 16 Blood Pressure [Ri ght Arm] 127/72 123/68 Pulse Oximetry 98 97 Oxygen Delivery Me thod Room Air Room Air 04/20/24 23:00 04/20/24 23:00 04/21/24 02:51 Temperature Pulse Rate Pulse Rate [Left P ulse Oximeter] 55 L Respiratory Rate 16 16 18 Blood Pressure [Ri ght Arm] Pulse Oximetry Oxygen Delivery Me thod 04/21/24 06:05 04/21/24 07:00 04/21/24 07:00 Temperature 97.1 F L 97.3 F L Pulse Rate 58 L Pulse Rate [Left P ulse Oximeter] 57 L 57 L Respiratory Rate 16 Blood Pressure [Ri ght Arm] 153/81 H 120/79 Pulse Oximetry 94 Oxygen Delivery Me thod Room Air 04/21/24 11:00 Temperature Pulse Rate Pulse Rate [Left P ulse Oximeter] 55 L Respiratory Rate 18 Blood Pressure [Ri ght Arm] 128/76 Pulse Oximetry 95 Oxygen Delivery Me thod Room Air DS: Data Data Completed and Pending Labs on day of discharge: Labs from last 24 hours 04/21/24 04/20/24 06:07 17:56 WBC 4.78 RBC 3.31 L Hgb 9.5 L Hct 30.1 L MCV 91 MCH 29 MCHC 32 RDW Coeff of Flaco 15.8 H Plt Count 101 L Neut % (Auto) 67.4 Lymph % (Auto) 19.2 L [place] % (Auto) 10.7 Eos % (Auto) 1.5 Baso % (Auto) 0.4 Neut # (Auto) 3.22 Lymph # (Auto) 0.90 [place] # (Auto) 0.50 Eos # (Auto) 0.07 Baso # (Auto) 0.02 Abs Immat Gran (auto) 0.04 Imm/Tot Granulo (auto) 0.8 VBG pH 7.338 VBG pCO2 40 VBG pO2 34.7 VBG HCO3 21 Sodium 143 142 Potassium 5.6 H 5.3 H Chloride 117 H 113 Carbon Dioxide 20 18 L Anion Gap 6 L 11 BUN 91 H 92 H Creatinine 4.1 H 4.0 H Estimated Creat Clear 14.46 14.82 Estimated GFR 14 14 Glucose 74 151 H Calcium 8.7 8.6 Phosphorus 5.2 H Total Bilirubin 0.4 AST 62 H ALT 71 H Alkaline Phosphatase 51 Total Protein 6.0 Albumin 3.7 Discharge Plan Discharge Disposition: Home, Self-Care Date of Admission: 04/21/24 08:46 Attending Provider on Discharge: Anil Gomez Primary Care Provider: Artem Cortez Condition: Improved Anticipated Discharge Date/Time: 04/21/24 11:28 Discharge Medications: New melatonin 3 mg Tablet 3 mg PO HS PRNQty: 100 0RF sodium bicarbonate 650 mg Tablet 650 mg PO TIDWM Qty: 180 0RF Lokelma 10 gram Powder In Packet 10 g PO DAILY Qty: 30 0RF Continued carvedilol 12.5 mg tablet 12.5 mg PO Q12H torsemide 20 mg tablet 20 mg PO DAILY atorvastatin 20 mg tablet 20 mg PO DAILY amlodipine 10 mg tablet 10 mg PO DAILY Discontinued losartan 50 mg tablet 25 mg PO DAILY Discharge Orders: Discharge Order (Routine); Ordered 04/21/24 Ordered By: Anil Gomez Patient Education: Melatonin (By mouth), Sodium Bicarbonate (By mouth), Sodium Zirconium Cyclosilicate (By mouth) (Lokelma), Hyperkalemia (DC) Additional Instructions: A return to [facility] laboratory on April 22 in the morning and on April 25 in the morning to have blood tests. Basic metabolic panel on the and . CBC without differential on the [place] Dr. Gomez will contact you with results and plan of care. Call him if you have concerns or questions [phone]. Activity Level: Activity as Tolerated Activity Detail: Outpatient physical therapy evaluation and treatment Discharge Diet: Renal Follow Up Appointments: Artem Cortez MD [Primary Care Provider] - 05/02/24 3:10 pm (Follow up appointment scheduled with primary at [facility] in [place]. ) Trevin Garland MD [Referring] - (keep appointment on May 02) Forms: [employer] Info Instructions
== END 2024-04-21 12:33 | disposition home or self-care (01) | DRG 683 ==
LOC: ED 14:09 → MEDSURG 15:41
PROVIDERS: Family Medicine; Admitting Provider Family Medicine; Emergency Provider Emergency Medicine; PCP Family Medicine; Visit Provider Family Medicine
DX: I12.0 Hypertensive chronic kidney disease with stage 5 chronic kidney disease or end stage renal disease (principal); D61.818 Other pancytopenia; N17.9 Acute kidney failure, unspecified; E87.21 Acute metabolic acidosis; N18.5 Chronic kidney disease, stage 5; N25.81 Secondary hyperparathyroidism of renal origin; E87.5 Hyperkalemia; I70.1 Atherosclerosis of renal artery; R26.89 Other abnormalities of gait and mobility; R53.83 Other fatigue; G31.84 Mild cognitive impairment of uncertain or unknown etiology; R94.6 Abnormal results of thyroid function studies; D63.1 Anemia in chronic kidney disease; I45.10 Unspecified right bundle-branch block; G47.00 Insomnia, unspecified
CPT/HCPCS: 36415; 80048; 80053; 81001; 82803; 83605; 84100; 84439; 84443; 84484; 85025; 93005; 97110; 97116; 97161; 97165; 97535; 99284; 99285; G0378; A9270; J7030

== ENCOUNTER 2024-04-22 08:56 | Outpatient (CLI) | payer MEDICARE, SELFPAY ==
[2024-04-22 09:57] LABS: Chloride* 117 mmol/L (96-114); Sodium* 146 mmol/L (135-149)
[2024-04-22 10:00] LABS: Anion Gap 11 mEq/L (7-15); Blood Urea Nitrogen* 83 mg/dL (7-30); Carbon Dioxide* 18 mmol/L (20-32); Creatinine* 4.2 mg/dL (0.5-1.5); Estimated Glomerular Filt Rate 13 ml/min; Glucose* 180 mg/dL (60-115)
[2024-04-22 10:01] LABS: Calcium* 9.1 mg/dL (8.4-10.6)
== END 2024-04-22 08:57 | disposition home or self-care (01) ==
LOC: LAB 08:57
PROVIDERS: PCP Family Medicine; Visit Provider Family Medicine
DX: N18.9 Chronic kidney disease, unspecified (principal); R26.9 Unspecified abnormalities of gait and mobility
CPT/HCPCS: 36415; 80048

== ENCOUNTER 2024-04-25 09:20 | Outpatient (CLI) | payer MEDICARE, SELFPAY ==
[2024-04-25 09:40] LABS: Hemoglobin* 9.9 gm/dL (13.5-17.5); Mean Corpuscular HGB Conc 32 gm/dL (32-36); Mean Corpuscular Hemoglobin 29 pg (26-34); Mean Corpuscular Volume 91 fL (80-100); Platelet Count* 88 K/uL (140-440); Red Blood Count 3.41 m/uL (4.30-5.90); White Blood Count* 4.32 K/uL (4.50-11.00)
[2024-04-25 09:42] LABS: Slide Review Reflex No
[2024-04-25 09:51] LABS: Chloride* 114 mmol/L (96-114); Potassium* 3.5 mmol/L (3.6-5.1); Sodium* 147 mmol/L (135-149)
[2024-04-25 09:54] LABS: Anion Gap 11 mEq/L (7-15); Blood Urea Nitrogen* 78 mg/dL (7-30); Carbon Dioxide* 22 mmol/L (20-32); Creatinine* 4.2 mg/dL (0.5-1.5); Estimated Glomerular Filt Rate 13 ml/min
[2024-04-25 09:55] LABS: Calcium* 9.1 mg/dL (8.4-10.6); Glucose* 157 mg/dL (60-115)
== END 2024-04-25 09:21 | disposition home or self-care (01) ==
PROVIDERS: PCP Family Medicine; Visit Provider Family Medicine
DX: E87.5 Hyperkalemia (principal)
CPT/HCPCS: 36415; 80048; 85027

== ENCOUNTER 2024-05-15 15:57 | Outpatient (CLI) | payer OTHER, SELFPAY | END 2024-05-15 15:58 | disposition home or self-care (01) | LOC: NFLDREF 05-19 02:58 | PROVIDERS: PCP Family Medicine; Referring Provider Family Medicine; Visit Provider Physician Assistant | DX: R41.0 Disorientation, unspecified (principal); R82.90 Unspecified abnormal findings in urine | CPT/HCPCS: 87086 ==

== ENCOUNTER 2024-05-15 16:10 | Outpatient (CLI) | payer OTHER, SELFPAY | END 2024-05-15 16:11 | disposition home or self-care (01) | LOC: AMB 05-29 04:38 | PROVIDERS: PCP Family Medicine; Visit Provider Emergency Medicine Emergency Medical Services | DX: R55 Syncope and collapse (principal) | CPT/HCPCS: A0425; A0433 ==

== ENCOUNTER 2024-05-15 16:48 | Emergency (ER) | payer OTHER, SELFPAY ==
[2024-05-15] VITALS (60 sets, daily range): BP systolic 39–143; BP diastolic 20–99; PULSE 36–102; RESP 12–14; TEMP 29.9; O2SAT 92–100
[2024-05-15] MEDS: ATROPINE 1 mg/10 ml IVP (17:00)
[2024-05-15] MEDS: SODIUM BICARBONATE 50 MEQ/50ML SYRINGE IVP (17:02)
[2024-05-15] MEDS: 0.9 % SODIUM CHLORIDE 1000 ml 1,000 ML IV (17:15)
[2024-05-15] MEDS: HYDROCORTISONE SOD SUCCINATE 50 MG/ML inj 100 MG IV (17:21)
[2024-05-15] MEDS: PIPERACILLIN/TAZOBACTAM 3.375 GM INJ IVPB (17:21)
[2024-05-15] MEDS: VANCOMYCIN 1.75 GM/350 ML 1.75 GM/350 ML PIGGYBACK IVPB (17:21)
[2024-05-15] MEDS: KETAMINE HCL 100 MG/ML inj 200 MG IV (17:31)
[2024-05-15] MEDS: ROCURONIUM BROMIDE 10 MG/ML inj 100 MG IV (17:31)
[2024-05-15] MEDS: KETAMINE HCL 500 MG in 0.9 % SODIUM CHLORIDE 500 ML 500 ML 200 MG IVPB (17:33)
[2024-05-15 17:41] LABS: PCO2 VBG 32 mmHG (40-50); pH VBG 7.384 (7.32-7.43)
[2024-05-15 17:42] LABS: Chloride* 113 mmol/L (96-114); HCO3 VBG 19 mmol/L (21-28); Lactate* 1.1 mmol/L (0.5-1.9); Potassium* 4.3 mmol/L (3.6-5.1); Sodium* 139 mmol/L (135-149)
--- NOTE | 2024-05-15 17:43 | CRLHL7_ITS ---
For Patients: As a result of the Century Cures Act, medical imaging exams and procedure reports are released immediately into your electronic medical record. You may view this report before your referring provider. If you have questions, please contact your health care provider. Indication: intubation, code blue Technique: AP view of the chest. Comparison: None. Findings: Endotracheal tube with tip 6.3 centimeter above the level of the baljinder. Enteric tube with tip in the right lower lobe bronchus. Defibrillator pads overlie the patient. Normal cardiomediastinal silhouette aside from calcified aortic knob. Moderate interstitial prominence. No focal consolidation, pleural effusions, or visualized pneumothorax. Impression: 1. Endotracheal tube with tip 6.3 centimeter above the level of the baljinder. 2. Enteric tube with tip in the right lower lobe bronchus. Consider repositioning. 3. Moderate interstitial prominence may represent pulmonary edema or atypical infection or inflammation. Findings discussed with Dr. Cheng at 6:50 p.m. on 05/15/2024. Dictated by Brian Miller MD @ 05/15/2024 6:51:49 PM (Electronically Signed)
[2024-05-15 17:45] LABS: Anion Gap 7 mEq/L (7-15); Basophils Absolute Auto 0.02 K/uL (0.00-0.30); Basophils Percent Auto 0.3 % (0.0-3.0); Blood Urea Nitrogen* 72 mg/dL (7-30); Carbon Dioxide* 19 mmol/L (20-32); Creatinine* 4.1 mg/dL (0.5-1.5); Eosinophils Absolute Auto 0.02 K/uL (0.00-0.50); Eosinophils Percent Auto 0.3 % (0.0-7.0); Estimated Glomerular Filt Rate 14 ml/min; Hematocrit 27.5 % (37.0-53.0); Hemoglobin* 8.5 gm/dL (13.5-17.5); Immature Granulocytes Abs Auto 0.06 K/uL (0.00-0.30); Immature Granulocytes Pct Auto 0.9 %; Lymphocytes Percent Auto 7.9 % (20-44); Mean Corpuscular HGB Conc 31 gm/dL (32-36); Mean Corpuscular Hemoglobin 29 pg (26-34); Mean Corpuscular Volume 92 fL (80-100); Monocytes Percent Auto 8.6 % (0.0-11.0); Platelet Count* 68 K/uL (140-440); Red Blood Count 2.98 m/uL (4.30-5.90); Slide Review Reflex No; White Blood Count* 6.59 K/uL (4.50-11.00)
[2024-05-15 17:46] LABS: Calcium* 7.4 mg/dL (8.4-10.6); Glucose* 193 mg/dL (60-115); Magnesium* 2.3 mg/dL (1.5-2.6)
[2024-05-15 17:48] LABS: C Reactive Protein* 4.4 mg/dL (0.5-1.0)
[2024-05-15 17:54] LABS: INR 1.29 (0.91-1.10); Prothrombin Time 16.9 Seconds
--- NOTE | 2024-05-15 17:54 | ED_ITS ---
HPI - General Adult General Chief complaint: Cardiac Arrest/CPR Stated complaint: ambulance Time Seen by Provider: 05/15/24 17:33 History of Present Illness HPI narrative: This 83-year-old male comes in by ambulance from urgent care where he came in with family. They wanted him checked for possible urinary tract infection because he has not been feeling normal over the Past2 or 3 weeks. The family report episodes of delirium and confusion. Prior to this he was in good health except he has failing kidneys. He is not currently on dialysis. while he was at urgent care he collapsed and CPR was started. Ambulance arrived and analyzed the rhythm to be some type of bradycardia rhythm. He was symptomatic an unstable so they did externally paced him. He did receive 2 mg of Versed and 100 mcg of fentanyl. He was sufficiently sedated but arousable while being paced. This was the case also upon arrival here. A code blue was initiated here. He had sufficient oximetry and was breathing on his own upon arrival. He did respond vocally to me when I called his name. Family members arrived a bit later and state that he is full code. They state that he had head a MRI Recently with normal findings and no evidence of stroke. Related Data Home Medications ?Medication ?Instructions ?Recorded ?Confirmed carvedilol 12.5 mg tablet 12.5 mg PO Q12H 11/23/22 05/15/24 amlodipine 10 mg tablet 10 mg PO DAILY 04/20/24 05/15/24 atorvastatin 20 mg tablet 20 mg PO DAILY 04/20/24 05/15/24 torsemide 20 mg tablet 20 mg PO DAILY 04/20/24 05/15/24 Previous Rx's ?Medication ?Instructions ?Recorded melatonin 3 mg tablet 3 mg PO HS PRN #100 tabs 04/21/24 sodium bicarbonate 650 mg tablet 650 mg PO TIDWM #180 tabs 04/21/24 Allergies Allergy/AdvReac Type Severity Reaction Status Date / Time No Known Drug Allergies Allergy Verified 05/15/24 15:40 Review of Systems Status of ROS: Reports: unobtainable due to medical condition [facility] Medical History (Updated 05/15/24 @ 18:25 by Rojas Guerra MD) Cognitive impairment ?R41.89 - Other symptoms and signs involving cognitive functions and awareness (ICD-10) Impairment of balance ?R26.89 - Other abnormalities of gait and mobility (ICD-10) Fatigue ?R53.83 - Other fatigue (ICD-10) Insomnia ?G47.00 - Insomnia, unspecified (ICD-10) Metabolic acidosis ?E87.20 - Acidosis, unspecified (ICD-10) Renal artery stenosis ?I70.1 - Atherosclerosis of renal artery (ICD-10) Prediabetes ?R73.03 - Prediabetes (ICD-10) Essential hypertension ?I10 - Essential (primary) hypertension (ICD-10) Anemia in chronic kidney disease (CKD) ?N18.9 - Chronic kidney disease, unspecified (ICD-10) ?D63.1 - Anemia in chronic kidney disease (ICD-10) CKD (chronic kidney disease) stage 5, GFR less than 15 ml/min ?N18.5 - Chronic kidney disease, stage 5 (ICD-10) Elevated cholesterol ?E78.00 - Pure hypercholesterolemia, unspecified (ICD-10) Hypertension ?I10 - Essential (primary) hypertension (ICD-10) Surgical History (Updated 04/20/24 @ 15:01 by Devika Ochoa MD) History of renal angiogram ?Z86.79 - Personal history of other diseases of the circulatory system (ICD- 10) History of tonsillectomy and adenoidectomy ?Z90.89 - Acquired absence of other organs (ICD-10) History of phacoemulsification of cataract of right eye with intraocular lens implantation (03/11/14) ?Z98.41 - Cataract extraction status, right eye (ICD-10) ?Z96.1 - Presence of intraocular lens (ICD-10) History of phacoemulsification of cataract of left eye with intraocular lens implantation (03/24/14) ?Z98.42 - Cataract extraction status, left eye (ICD-10) ?Z96.1 - Presence of intraocular lens (ICD-10) History of YAG laser capsulotomy of lens of right eye (08/02/16) ?Z98.41 - Cataract extraction status, right eye (ICD-10) History of YAG laser capsulotomy of lens of left eye (12/11/18) ?Z98.42 - Cataract extraction status, left eye (ICD-10) Social History (Updated 04/20/24 @ 16:40 by Devika Ochoa MD) Narrative: , lives independently with . mental health program director. Son Pillo would be MDM if needed. Nonsmoker, no tobacco use. Full Code What is your current living situation?: I presently have a place to live Problems where you live: no known problems Problems where you live details: N/A In the past 12 months, utilities in danger of being shut off: no In past 12 months, lack of transportation kept you from medical appts, meetings, work, or getting things needed for daily living: no In the past 12 mos, have been you worried that your food would run out before you had money to buy more?: never true In the past 12 mos, the food you bought just didn't last and you didn't have money to buy more?: never true Highest level of school completed/degree received: Master's degree Smoking Status: Never smoker How often do you have a drink containing alcohol: monthly or less AUDIT-C Alcohol total score: 1 Non-prescribed substance use: denies use How often does anyone, including family, friends and others, physically hurt you : never How often does anyone, including family, friends and others, insult or talk down to you: never How often does anyone, including family, friends and others, threaten you with harm: never How often does anyone, including family, friends and others, scream or curse at you: never service: No Exam Narrative: Exam Narrative: Constitutional: Well-developed, well-nourished, no acute distress. HEENT: Normocephalic, atraumatic. Neck: Normal range of motion. Nontender. Supple. Heart: bradycardia with poor perfusion. When paced he had good perfusion and p eripheral pulses. Lungs: Clear to auscultation. No chest discomfort. No wheezes, rhonchi, or rales. Abdomen: Normal bowel sounds. Nontender. No rebound tenderness. Genitalia: Deferred. Back: No midline tenderness. Normal range of motion. Extremities: Normal range of motion. No injury. Skin: Intact. No rash. Warm. No erythema or pallor. Nursing notes and vitals signs are reviewed. Const: Vital Signs, click to edit/add: Vital Signs - 24 hr 05/15/24 16:53 05/15/24 16:54 05/15/24 16:55 Temperature 85.9 F L Pulse Rate 36 L 36 L Respiratory Rate Blood Pressure 68/51 L Blood Pressure [Le ft Upper Arm] 82/51 L Pulse Oximetry 100 94 96 Oxygen Delivery Me thod OxyMask 05/15/24 16:58 05/15/24 17:00 05/15/24 17:01 Temperature Pulse Rate 37 L 36 L 36 L Respiratory Rate Blood Pressure 87/71 L 82/51 L Blood Pressure [Le ft Upper Arm] Pulse Oximetry 98 100 100 Oxygen Delivery Me thod 05/15/24 17:02 05/15/24 17:04 05/15/24 17:06 Temperature Pulse Rate 36 L 45 L 46 L Respiratory Rate Blood Pressure 39/20 L 82/61 L 102/63 Blood Pressure [Le ft Upper Arm] Pulse Oximetry 100 100 99 Oxygen Delivery Me thod 05/15/24 17:07 05/15/24 17:10 05/15/24 17:11 Temperature Pulse Rate 46 L 36 L 59 L Respiratory Rate Blood Pressure 91/71 Blood Pressure [Le ft Upper Arm] Pulse Oximetry 99 100 100 Oxygen Delivery Me thod 05/15/24 17:13 05/15/24 17:15 05/15/24 17:16 Temperature Pulse Rate 60 62 63 Respiratory Rate Blood Pressure 85/56 L 84/58 L Blood Pressure [Le ft Upper Arm] Pulse Oximetry 100 99 100 Oxygen Delivery Tn thod 05/15/24 17:17 05/15/24 17:22 05/15/24 17:24 Temperature Pulse Rate 54 L 62 62 Respiratory Rate Blood Pressure 122/91 H 136/97 H 105/91 H Blood Pressure [Le ft Upper Arm] Pulse Oximetry 99 99 100 Oxygen Delivery Tn thod 05/15/24 17:26 05/15/24 17:27 05/15/24 17:29 Temperature Pulse Rate 63 62 Respiratory Rate Blood Pressure 133/85 130/99 H 143/98 H Blood Pressure [Le ft Upper Arm] Pulse Oximetry 100 94 98 Oxygen Delivery Me thod 05/15/24 17:30 05/15/24 17:32 05/15/24 17:34 Temperature Pulse Rate 56 L 62 53 L Respiratory Rate 12 Blood Pressure 113/88 125/78 Blood Pressure [Le ft Upper Arm] Pulse Oximetry 98 99 100 Oxygen Delivery Me thod 05/15/24 17:38 05/15/24 17:41 05/15/24 17:43 Temperature Pulse Rate 61 51 L 47 L Respiratory Rate 12 12 14 Blood Pressure 117/87 137/98 H 122/94 H Blood Pressure [Le ft Upper Arm] Pulse Oximetry 100 100 100 Oxygen Delivery Me thod 05/15/24 17:45 05/15/24 17:46 Temperature Pulse Rate 46 L 47 L Respiratory Rate 14 14 Blood Pressure 124/86 Blood Pressure [Le ft Upper Arm] Pulse Oximetry 100 100 Oxygen Delivery Me thod Course Vital Signs Vital signs: Initial Vital Signs Temperature 85.9 F L 05/15/24 16:53 Temperature Source Temporal Artery Scan 05/15/24 16:53 Blood Pressure 82/51 L 05/15/24 16:53 Blood Pressure Mean 61 L 05/15/24 16:53 Pulse Oximetry 100 05/15/24 16:53 Oxygen Delivery Method OxyMask 05/15/24 16:53 Vital Signs Temperature 85.9 F L 05/15/24 16:53 Blood Pressure 82/51 L 05/15/24 16:53 Pulse Oximetry 100 05/15/24 16:53 Oxygen Delivery Method OxyMask 05/15/24 16:53 Temperature 85.9 F L 05/15/24 16:53 Pulse Rate 47 L 05/15/24 17:46 Respiratory Rate 14 05/15/24 17:46 Blood Pressure 124/86 05/15/24 17:46 Pulse Oximetry 100 05/15/24 17:46 Oxygen Delivery Method OxyMask 05/15/24 16:53 Medical Decision Making MDM Narrative Medical decision making narrative: This patient comes in in symptomatic bradycardia and is currently paced externally. He did receive medications to help with pain and sedation prior to arrival. The patient had his pads removed that were applied from ambulance and was connected to our own system. In between this he reverted back to a symptomatic bradycardia with heart rate around 30 beats per minute. He did continued to breathe on his own and was somewhat arousable. He was then paced again at 62 beats per minute with about 80 milliamps of energy. The patient did receive another dose of fentanyl 100 mcg. While being paced he is maintaining sufficient blood pressure. He continues to breathe on his own but plans are made for intubation. Within fiber 10 minutes after arrival I did connect with [facility] [facility] [employer] and spoke to a hospitalist and academic affairs assistant. They also connected me with and ER physician as are no beds available but they would accept the patient into the emergency department. The suspicion initially was that this patient had hyperkalemia due to his renal insufficiency. The patient did receive calcium carbonate, dextrose, and insulin with the assumption that his potassium could be high causing these current symptoms. Labs however did not confirm this as his potassium was 4.3. The patient did have hypothermia with a body temperature at 86? F. so there is suspicion of sepsis. The patient did receive IV doses of Zosyn and vancomycin. The patient was placed on an epinephrine drip at 10 mcg but did not produce any increase in his heart function. He also received atropine 0.[address] Cheng assisted in care of this patient and performed the intubation. This was done after receiving etomidate and sedation was maintained with ketamine. I spoke again with physicians at [facility] and updated them we guarding lab results and they are happy to accept the patient into the emergency department for ongoing management. The patient continues with external pacing and is maintaining sufficient vital signs. Time spent in critical care of this patient was 90 minutes. Lab Data Labs: Lab Results 05/15/24 Range/Units 17:00 WBC 6.59 (4.50-11.00) K/uL RBC 2.98 L (4.30-5.90) m/uL Hgb 8.5 L (13.5-17.5) gm/dL Hct 27.5 L (37.0-53.0) % MCV 92 (80-100) fL MCH 29 (26-34) pg MCHC 31 L (32-36) gm/dL RDW Coeff of Flaco 16.0 H (11.5-15.5) % Plt Count 68 L (140-440) K/uL Neut % (Auto) 82.0 H (42.0-72.0) % Lymph % (Auto) 7.9 L (20-44) % Fergus % (Auto) 8.6 (0.0-11.0) % Eos % (Auto) 0.3 (0.0-7.0) % Baso % (Auto) 0.3 (0.0-3.0) % Neut # (Auto) 5.40 (1.7-7.0) K/uL Lymph # (Auto) 0.50 L (0.90-2.90) K/uL Fergus # (Auto) 0.60 (0.00-0.90) K/UL Eos # (Auto) 0.02 (0.00-0.50) K/uL Baso # (Auto) 0.02 (0.00-0.30) K/uL Abs Immat Gran (auto) 0.06 (0.00-0.30) K/uL Imm/Tot Granulo (auto) 0.9 % INR 1.29 H (0.91-1.10) VBG pH 7.384 (7.32-7.43) VBG pCO2 32 L (40-50) mmHG VBG pO2 122.0 H (25-47) mmHG VBG HCO3 19 L (21-28) mmol/L Sodium 139 (135-149) mmol/L Potassium 4.3 (3.6-5.1) mmol/L Chloride 113 (96-114) mmol/L Carbon Dioxide 19 L (20-32) mmol/L Anion Gap 7 (7-15) mEq/L BUN 72 H (7-30) mg/dL Creatinine 4.1 H (0.5-1.5) mg/dL Estimated GFR 14 ml/min Glucose 193 H (60-115) mg/dL Lactate 1.1 (0.5-1.9) mmol/L Calcium 7.4 L (8.4-10.6) mg/dL Magnesium 2.3 (1.5-2.6) mg/dL Troponin I < 0.01 L (0.01-0.04) ng/mL C-Reactive Protein 4.4 H (0.5-1.0) mg/dL Procalcitonin 0.14 (<0.50) ng/mL ECG Data Attestation: I personally reviewed and interpreted this ECG as follows: Interpretation: Bradycardia, undetermined rhythm, rate 32 beats per minute. There are no ST or T-wave abnormalities. Critical Care Time Critical Care Time Critical Care Time: Yes Attestation: The patient required my highest level preparedness to intervene emergently and I personally spent this critical care time directly and personally managing the patient. This critical care time included: Obtaining a history; Examining the patient; Pulse oximetry; Ordering and reviewing of studies; Arranging urgent treatment with development of a management plan; Evaluation of patients response to treatment; Frequent reassessment discussions with other providers. This critical care time was performed to assess and manage the high probability of imminent life-threatening deterioration that could result in multiorgan failure. It was exclusive of separate billable procedures and treating other patients and teaching time. Total Critical Care Time in Minutes: 90 Discharge Plan Discharge Clinical Impression: Hypothermia, Bradycardia, Chronic renal insufficiency Patient Disposition: [facility] Condition: Unchanged Prescriptions: No Action carvedilol 12.5 mg tablet 12.5 mg PO Q12H torsemide 20 mg tablet 20 mg PO DAILY atorvastatin 20 mg tablet 20 mg PO DAILY amlodipine 10 mg tablet 10 mg PO DAILY melatonin 3 mg Tablet 3 mg PO HS PRNQty: 100 0RF sodium bicarbonate 650 mg Tablet 650 mg PO TIDWM Qty: 180 0RF Follow Up/Referrals: Artem Cortez MD [Primary Care Provider] - Stand Alone Forms: [employer] Info Instructions
[2024-05-15 17:59] LABS: Troponin I* < 0.01 ng/mL (0.01-0.04)
[2024-05-15 18:03] LABS: Procalcitonin* 0.14 ng/mL (<0.50)
[2024-05-15 18:37] LABS: PCR FLU A Negative PCR FLU A (Negative); PCR FLU B Negative PCR FLU B (Negative); PCR RSV Negative PCR RSV (Negative); SARS PCR* Negative SARS-CoV-2 (Negative)
--- OUTSIDE RECORDS SUMMARY | 2024-05-15 19:16 | XMS_ITS | Clinical Summary ---
Author Organization [employer] [facility] Address [place], [place] [address] Care Team Providers Care House Mover Helper Name Role Phone Mike Jackson Unavailable [phone] Albert Jordan MD Unavailable Theo Tessa M DC Unavailable [phone] Artem Cortez MD Primary Care Provider [phone] Allergies Active Allergy Reactions Criticality Noted Date Comments Lisinopril Cough 07/20/2009 Medications torsemide (DEMADEX) 20 mg tablet Take 20 mg by mouth once daily. Active amLODIPine (NORVASC) 10 mg tabletIndications:Hypert ension Take 1 Tablet (10 mg) by mouth once daily. 90 Tablet 3 02/19/20 24 Active atorvastatin (LIPITOR) 20 mg tabletIndications:Pure hypercholesterolemia Take 1 Tablet (20 mg) by mouth once daily. 90 Tablet 3 02/19/20 24 Active carvediloL (COREG) 12.5 mg tabletIndications:Essent ial hypertension Take 1.5 Tablets (18.75 mg) by mouth two times daily. 270 Tablet 3 02/19/20 24 Active losartan (COZAAR) 50 mg tabletIndications:Hypert ension,CKD (chronic kidney disease) stage 4, GFR 15-29 ml/min (HC) Take 0.5 Tablets (25 mg) by mouth once daily. 45 Tablet 3 02/19/20 24 Active melatonin 3 mg tablet Take by mouth. 04/21/20 24 Active Active Problems Problem Noted Date Diagnosed Date Secondary renal hyperparathyroidism 06/15/2022 Anemia in stage 4 chronic kidney disease 023 Hyperkalemia 06/15/2022 CKD (chronic kidney disease) stage 4, GFR 15-29 ml/min 03/03/2020 Renal artery stenosis 12/31/2019 Pure hypercholesterolemia 08/29/2011 Hypertension 07/20/2009 Resolved Problems Problem Noted Date Diagnosed Date Resolved Date CKD (chronic kidney disease) stage 3, GFR 30-59 ml/min 09/26/2016 03/03/2020 Encounters Date Type Department Care Team Description 05/15/2024 6:00 PM INSTRUMENT MAKER APPRENTICE Emergency [facility] Emergency Department [address] [place] [address] 05/15/2024 Telephone [facility] [address] [place] [address] Linda Chand MD 05/15/2024 Telephone [facility] [address] [place] [address] Artem Cortez MD Results 05/12/2024 11:00 AM INSTRUMENT MAKER APPRENTICE Ancillary Procedure [facility] [address] [place] [address] Arrived 05/12/2024 Travel 05/06/2024 11:15 AM INSTRUMENT MAKER APPRENTICE Office Visit [address] [address] Artem Cortez MD [facility] F/U (Sleeplessness. ) 05/06/2024 Travel 05/02/[address] [address] Artem Cortez MD Failed Appointment 02/19/2024 9:35 AM CDT Office Visit [address] [address] Artem Cortez MD Medicare ANNUAL (subsequent) Visit (83 years); Medication List Update (Patient reports NO allergy to aspirin) 02/19/2024 Travel from Last 3 Months Immunizations Name Administration Dates Next Due HepA-HepB (Twinrix) 10/13/2005,05/06/2002,2001 Influenza RIV4 (Age 18+ Year s) PRESERV FREE 02/19/2019 Influenza, High-dose Inactivated 024,02/27/2018,02/13/2017,2015,12/16/2014,03/02/2014 Influenza, High-dose Quadriv alent Inactivated 02/01/2023,03/03/2022,03/07/2021 Influenza, IIV3 (Age >=3 years) 02/28/2009,03/03,03/03/2004 Influenza, Inactivated AIIV4 (Age 65+ Years) Preserv Free 01/07/2020 Pneumococcal Poly,23-Valent (Pneumovax) 03/03/2005 Pneumococcal conj 13-Valent (Prevnar 13) 09/04/2014 Td (Age >=7 Years) 10/13/2005,06/19/1995 Tdap 08/30/2012 Typhoid (injectable) 04/03/2002 Zoster (Shingrix-RZV, recombinant) 03/17/2020, Zoster (Zostavax-ZVL, live) 11/13/2011 Family History Medical History Relation Name Comments Other Father accidental deat h Other Mother lung ca Cancer Sister of Cancer at 79 Cancer-breast No Family History Cancer-colon No Family History Cancer-ovarian No Family History Cancer-pancreatic No Family History Cancer-prostate No Family History Melanoma No Family History Relation Name Status Comments Father Mother Sister Social History Tobacco Use Types Packs/Day Years Used Date Smoking Tobacco: Never Smokeless Tobacco: Never Tobacco Cessation:Counseling Given: Yes Alcohol Use Standard Drinks/Week Comments Yes 2 (1 standard drink = 0.6 oz pur e alcohol) very occ PHQ-2 Answer Date Recorded PHQ-2 TOTAL SCORE 0 02/19/2024 Social Connections Answer Date Recorded Do you often feel lonely or isolated from those around you? 0 02/19/2024 Alcohol Use Answer Date Recorded How often do you have a drink containing alcohol ? 2 02/19/2024 How many drinks containing a lcohol do you have on a typical day when you are drinking? 0 02/19/2024 How often do you have five or more drinks on one occasion? 0 02/19/2024 Financial Resource Strain Answer Date R ecorded Difficulty of Paying Living Expenses 3 02/19/2024 Difficulty of Paying Living Expenses Not on file 02/19/2024 Food Insecurity Answer Date Recorded Do you worry your food will run out before you are able to buy more? 1 02/19/2024 Transportation Needs Answer Date Record ed Does lack of transportation keep you from medica l appointments? 1 02/19/2024 Does lack of transportation keep you from work, meetings or getting things that you need? 1 02/19/2024 Housing Stability Answer Date Recorded What is your housing situation today? 1 02/19/2024 Utilities Answer Date Recorded Do you have trouble paying f or utilities (for example, heat, electricity, water, phone)? 1 02/19/2024 Sex and Gender Information Value Date Recorded Sex Assigned at Not on file Legal Sex Male 5:25 AM INSTRUMENT MAKER APPRENTICE Gender Identity Not on file Sexual Orientation Not on file Occupation Industry Job Start Date Job End Date retired teacher Not on file Not on file Not on file Obstetrics History Last Filed Vital Signs Vital Sign Reading Time Taken Comments Blood Pressure 116/72 05/06/2024 11:28 AM INSTRUMENT MAKER APPRENTICE Pulse 56 05/06/2024 11:28 AM INSTRUMENT MAKER APPRENTICE Temperature 36.3 C (97.4 F) 02/19/2024 10:14 AM CDT Respiratory Rate 20 02/16/2020 10:45 AM CDT Oxygen Saturation 98% 05/06/2024 11:28 AM INSTRUMENT MAKER APPRENTICE Inhaled Oxygen Concentration - - Weight 82.6 kg (182 lb) 05/06/2024 11:28 AM INSTRUMENT MAKER APPRENTICE Height 183.7 cm (6' 0.32) 02/19/2024 10:14 AM C DT Body Mass Index 24.46 02/19/2024 10:14 AM CDT Plan of Treatment Upcoming Encounters Date Type Department Care Team (Late st Contact Info) Description 05/16/2024 10:30 AM INSTRUMENT MAKER APPRENTICE Ancillary Procedure [facility] [address] [place] [address] Health Maintenance Due Date Last Done Comments RSV vaccine for adults or (1 - 1-dose 75+ series) 2013 Tetanus booster 08/30/2022 08/30/2012, 09/28, 06/19/1995 BMI (ht and wt on same day) for age 18+ 02/18/2025 02/19/2024, 12/12/2022, 11/02/2021, Additional history exists Depression screening for age 12+ 02/18/2025 02/19/2024, 12/12/2022, 03/31/2021, Additional history exists Medicare Wellness for age 65+ 02/19/2025, 12/12/2022, 03/29/2021, Additional history exists Tdap Completed 08/30/2012 Pneumococcal series for age 50+ Completed 5, 03/03/2005 Zoster (shingles) series for age 50+ Completed 03/17/2020, 12/22/2019, 11/13/2011 COVID-19 vaccine series Completed 01/17/20 24, 08/09/2023, 02/01/2023, Additional history exists Influenza for age 65+ Completed 01/17/2024 , 02/01/2023, 03/03/2022, Additional history exists Procedures Procedure Name Priority Date/Time Associated Diagnosis Comments MR HEAD BRAIN WO EDISON 05/12/2024 11:2 4 AM INSTRUMENT MAKER APPRENTICE Confusion HEMOGLOBIN A1C Routine 02/19/2024 11:16 AM CDT Hyperglycemia PTH, INTACT AND CALCIUM ([facility]) Routine 02/19/2024 11:14 AM CDT CKD (chronic kidney disease) stage 4, GFR 15-29 ml/min (HC) HEMOGLOBIN Routine 02/19/2024 11:14 AM CDT CKD (chronic kidney disease) stage 4, GFR 15-29 ml/min (HC) LIPID PANEL W REFLEX MEASURED LDL Routine 02/19/2024 11:14 AM CDT Pure hypercholesterolemia BASIC METABOLIC PANEL Routine 02/19/2024 11:14 AM CDT Hypertension from Last 3 Months Results * MR HEAD BRAIN WO (05/12/2024 11:24 AM INSTRUMENT MAKER APPRENTICE) Anatomical Region Laterality Modality BRAIN, HEAD Magnetic Resonan ce 05/12/2024 11:3 3 AM INSTRUMENT MAKER APPRENTICE Impressions 05/12/2024 11:33 AM INSTRUMENT MAKER APPRENTICE 1. No acute intracranial abnormality. 2. Advanced chronic microvascular ischemic changes and mild diffuse cerebral volume loss. Dictated by Eids Landaverde MD @ 05/12/2024 11:33:35 AM (Electronically Signed) Narrative 05/12/2024 11:33 AM INSTRUMENT MAKER APPRENTICE For Patients: As a result of the Cures Act, medical imaging exams and procedure reports are released immediately into your electronic medical record. You may view this report before your referring provider. If you have questions, please contact your health care provider. INDICATION: Confusion. TECHNIQUE: Multiplanar multisequence noncontrast MR images of the brain. COMPARISON: None. FINDINGS: Mild diffuse cerebral volume loss. No mass effect or midline shift. Confluent FLAIR hyperintensities in the supratentorial white matter and everardo, typical for advanced chronic microvascular ischemic changes. No intracranial hemorrhage or pathologic extra-axial fluid collection. No diffusion restriction to suggest acute infarction. The major arterial flow voids of the skullbase are preserved. Thinning of the ocular lenses. Mild paranasal sinus mucosal thickening. Mastoid air cells are clear. Procedure Note Edis Landaverde MD - 05/12/2024 For Patients: As a result of the Cures Act, medical imagingexams and procedure reports are released immediately into your electronicmedical record. You may view this report before your referring provider.If you have questions, please contact your health care provider. INDICATION: Confusion. TECHNIQUE: Multiplanar multisequence noncontrast MR images of the brain. COMPARISON: None. FINDINGS: Mild diffuse cerebral volume loss. No mass effect or midline shift.Confluent FLAIR hyperintensities in the supratentorial white matter andpons, typical for advanced chronic microvascular ischemic changes. No intracranial hemorrhage or pathologic extra-axial fluid collection. Nodiffusion restriction to suggest acute infarction. The major arterial flow voids of the skullbase are preserved. Thinning ofthe ocular lenses. Mild paranasal sinus mucosal thickening. Mastoid aircells are clear. IMPRESSION: 1. No acute intracranial abnormality. 2. Advanced chronic microvascular ischemic changes and mild diffusecerebral volume loss. Dictated by Edis Landaverde MD @ 05/12/2024 11:33:35 AM (Electronically Signed) us Artem Cortez MD MR Final Resu lt * (ABNORMAL) HEMOGLOBIN A1C (02/19/2024 11:16 AM CDT) HEMOGLOBIN A1C 6.4(H) <5.7 % of total Hgb [facility] Comment: For someone without known diabetes, a hemoglobin A1c value between 5.7% and 6.4% is consistent with prediabetes and should be confirmed with a follow-up test. For someone with known diabetes, a value <7% indicates that their diabetes is well controlled. A1c targets should be individualized based on duration of diabetes, age, comorbid conditions, and other considerations. This assay result is consistent with an increased risk of diabetes. Currently, no consensus exists regarding use of hemoglobin A1c for diagnosis of diabetes for children. Blood BLOOD SPECIMEN / Unknown 02/19/2024 11:16 AM CDT 02/19/2024 11:17 AM CDT us Artem Cortez MD CHEMISTRY Final Resu lt [facility] [address] [place] [address], [address] [address] * (ABNORMAL) PTH, INTACT AND CALCIUM ([facility]) (02/19/2024 11:14 AM CDT) PARATHYROID HORMONE, INTACT 179(H) 16 - 77 pg/mL [facility] Cort[facility] Comment: Interpretive Guide Intact PTH Calcium ------- Normal Parathyroid Normal Normal Hypoparathyroidism Low or Low Normal Low Hyperparathyroidism Primary Normal or High High Secondary High Normal or Low Tertiary High High Non-Parathyroid Hypercalcemia Low or Low Normal High CALCIUM 9.4 8.6 - 10.3 mg/dL [facility] Cortez Blood BLOOD SPECIMEN / Unknown 02/19/2024 11:14 AM CDT 02/19/2024 11:15 AM CDT Narrative [facility] - 02/20/2024 4:15 PM CDT FASTING:NO FASTING: NO Artem Cortez MD SEND OUTS Final Resu lt [facility] [address] [place] [address], [place] [phone] [facility] [address] [place] [address] * (ABNORMAL) LIPID PANEL W REFLEX MEASURED LDL (02/19/2024 11:14 AM CDT) CHOLESTEROL, TOTAL 140 <200 mg/dL [facility] HDL CHOLESTEROL 28(L) > OR = 40 mg/dL [facility] TRIGLYCERIDES 164(H) <150 mg/dL [facility] LDL-CHOLESTEROL 86 mg/dL (calc) [facility] Comment: Reference range: <100 Desirable range <100 mg/dL for primary prevention; <70 mg/dL for patients with CHD or diabetic patients with > or = 2 CHD risk factors. LDL-C is now calculated using the Albert-Darell calculation, which is a validated novel method providing better accuracy than the Friedewald equation in the estimation of LDL-C. Albert SS et al. BURTON. 2013;310(19): 5433-1628 (http://education.Bazaart/faq/GBN147) CHOL/HDLC RATIO 5.0(H) <5.0 (calc) [facility] NON HDL CHOLESTEROL 112 <130 mg/dL (calc) [facility] Comment: For patients with diabetes plus 1 major ASCVD risk factor, treating to a non-HDL-C goal of <100 mg/dL (LDL-C of <70 mg/dL) is considered a therapeutic option. Blood BLOOD SPECIMEN / Unknown 02/19/2024 11:14 AM CDT 02/19/2024 11:15 AM CDT Narrative [facility] - 02/20/2024 4:38 AM CDT FASTING:NO FASTING: NO Artem Cortez MD CHEMISTRY Final Resu lt Performing Organization Address [facility]/ZIP Co de Phone Number [facility] [address] [place] [address], [place] [phone] [facility] [address] [place] [address] * (ABNORMAL) HEMOGLOBIN (02/19/2024 11:14 AM CDT) HEMOGLOBIN 11.1(L) 13.2 - 17.1 g/dL [facility] Blood BLOOD SPECIMEN / Unknown 02/19/2024 11:14 AM CDT 02/19/2024 11:15 AM CDT Narrative [facility] - 02/20/2024 4:54 AM CDT FASTING:NO FASTING: NO Artem Cortez MD HEMATOLOGY Final Resu lt Performing Organization Address [facility] Co de Phone Number [facility] [address] [place] [address], [facility] [address] [place] [address] * (ABNORMAL) BASIC METABOLIC PANEL (02/19/2024 11:14 AM CDT) GLUCOSE 92 65 - 139 mg/dL [facility] Comment: Non-fasting reference interval UREA NITROGEN (BUN) 74(H) 7 - 25 mg/dL [facility] CREATININE 4.22(H) 0.70 - 1.22 mg/dL [facility] EGFR 13(L) > OR = 60 mL/min/1.7 3m2 [facility] BUN/CREATININE RATIO 18 6 - 22 (calc) [facility] SODIUM 141 135 - 146 mmol/L [facility] POTASSIUM 4.8 3.5 - 5.3 mmol/L [facility] CHLORIDE 111(H) 98 - 110 mmol/L [facility] CARBON DIOXIDE 22 20 - 32 mmol/L [facility] ELECTROLYTE BALANCE 8 7 - 17 mmol/L (calc) [facility] CALCIUM 9.4 8.6 - 10.3 mg/dL [facility] Blood BLOOD SPECIMEN / Unknown 02/19/2024 11:14 AM CDT 02/19/2024 11:15 AM CDT Narrative [facility] - 02/20/2024 4:38 AM CDT FASTING:NO FASTING: NO us Artem Cortez MD CHEMISTRY Final Resu lt [facility] [address] [place] [address], [facility] [address] [place] [address] from Last 3 Months Insurance MEDICA PRIME SOLUTION HB MEDICARE PART B HB ONLY [facility] MR/MSHO Care Teams House Mover Helper Relationship Specialty Start Date End Date Artem Cortez MD [address] [place] [address] PCP - General Family Practice 10/11/20 Mike Jackson [address] [place] [address] Frit Maker 08/29/11 Albert Jordan MD [address] [place] [address] Gastroenterology 08/30/12 Tessa Venegas DC [address] [place] [address] Chiropractor 09/01/13
[2024-05-15 19:44] LABS: Appearance Urine Clear (Clear); Bilirubin Urine Negative (Negative); Blood Urine 2+ (Negative); Color Urine Yellow (Yellow); Glucose Urine Negative (Negative); Ketones Urine Negative (Negative); Leukocyte Esterase Urine Trace (Negative); Nitrite Urine Negative (Negative); Protein Urine 3+ (Negative); Specific Gravity Urine 1.025 (1.000-1.030); Urobilinogen Urine 0.2 (0.2-1.0); pH Urine 5.5 (5.0-8.5)
[2024-05-15 20:01] LABS: Bacteria Urine Few; Squamous Epithelial Cell Urine Few (None-Few)
== END 2024-05-15 20:43 | disposition short-term general hospital (02) ==
PROVIDERS: Emergency Provider Emergency Medicine Emergency Medical Services; PCP Family Medicine
DX: T68.XXXA Hypothermia, initial encounter (principal); R00.1 Bradycardia, unspecified; N18.5 Chronic kidney disease, stage 5
CPT/HCPCS: 31500; 36415; 71045; 80048; 81001; 82803; 83605; 83735; 84145; 84443; 84484; 85025; 85610; 86140; 87040; 87186; 87631; 87800; 93005; 99285; 99291; 99292; J0171; J0461; J1720; J2543; J3372; J3490; J7030; J7050

== ENCOUNTER 2024-05-15 18:25 | Outpatient (CLI) | payer MEDICARE, SELFPAY | END 2024-05-15 18:26 | disposition home or self-care (01) | LOC: AMB 06-06 04:25 | PROVIDERS: PCP Family Medicine; Visit Provider Emergency Medicine Emergency Medical Services | DX: I49.9 Cardiac arrhythmia, unspecified (principal) | CPT/HCPCS: A0425; A0434 ==

== ENCOUNTER 2024-07-29 10:15 | Outpatient (RCR) | payer MEDICARE, SELFPAY ==
--- NOTE | 2024-07-22 18:22 | PT.OPEX ---
PT [place] Outpatient Eval PT [facility] Outpatient Eval Start: 05/15/24 07:25 Freq: Status: Active Protocol: Document 07/22/24 13:16 NLR (Rec: 07/22/24 18:22 NLR [id number]) E-signed By Rajni Frazier DPT Physical Therapy Outpatient Evaluation Insurance Information Recert Due Date 10/20/24 Insurance Name Medicare B,[facility] Referring MD Artem Cortez MD Subjective Preferred Name BALDEV Subjective Baldev reports he started dialysis three times per week in May of this year and is doing quite well, although he has some dizziness that causes unsteadiness on the days he has dialysis (M, W, F) . He had PT fall of 2022 for a R rotator cuff issue that has resolved and he had PT in the hospital in Mar 2024 for a staph infection and he has no recollection of that visit, but he does the exercises every day. He had a renal angiogram for stage 5 CKD in 03/2024. Pain Comments 0/10 - thighs feel weak when doing the stairs Dizziness with quick movements , it resolves as quickly as it arrives. He tries to intake fluid, particularly with protein. He is struggling getting 64 ounces of fluid as requested by Dr. López. Date of Last Physician Visit 05/06/24 Current Work Status Retired Occupation Patient lives with his Karrie, she is not able help him at all. Baldev helps her some with her cares (reaching) . [facility] [place] level. He goes to the basement quite frequently. He really wants to get back to pickleball and biking this summer. Precautions Treatment Precautions/Contraindications Pacemaker, dialysis port, feeding tube (about to be removed). Stage 5 CKD on dialysis M/W/F. Therapy Limitations/Systems Review Not Limited Objective Other/Pertinent Objective HAND DOM: RIGHT ROM: Grossly functional. STRENGTH: Mild B thigh weakness 4/5 GAIT: Ambulates independently without gait aid with mild list to the right and mild posterior sway during stationary stance - he is able to self-correct both. Functional Test Performed & Score 07/22/24: Sandra Balance Score: 51 / 56 = 91.1 % Assessment Assessment/Impression Baldev is a 83-year-old male who presents for skilled PT evaluation presenting with very mild high level balance difficulties and dizziness on his days of dialysis which is consistent with age-related high-level balance difficulties with narrow base of support in the setting of stage 5 CKD on dialysis. Patient is an appropriate candidate for skilled physical therapy to target deficits described above. Skilled PT intervention is necessary to achieve goals as stated. D/C plan and criteria is for patient to achieve the goals as outlined or until max rehab potential is met. Patient was agreeable with plan of care and goals established. Primary Functional Limitations Dizzy when moving too fast on days he has dialysis. Feels his thighs are weak. Plan of Care Rehabilitation Potential Excellent Rehabilitation Potential Comments Patient is otherwise healthy and motivated to improve in order to return to prior level of function. Physical Therapy Goals 1. Patient will be independent with home exercise program as instructed, modified and progressed by physical therapist in order to be independently and actively participating in their rehabilitation and return to prior level of function. Goal to be achieved by 08/26/2024. 2. Patient will demonstrate ability to walk for 60 minutes (s) without significant increase in pain greater than 2/10 to allow patient to be able to safely and independently return to participation in desired level of function with daily activities such participating in desired recreational activities, going to appointments, walking for exercise without pain or difficulty. Goal to be achieved by 08/26/2024. Coordination/Communication With Referral Source Treatment Plan/Direct Interventions Neuromuscular Re-ed, Therapeutic Exercises Frequency/Duration 2 visits Patient Will Be Discharged From Therapy Completion of LTG(s),Skills Plateau,Independent w/HEP, Independently Progressing Discharge Plan Comments DC with HEP after 2 visits Evaluation Billing Untimed Code Treatment Minutes 15 PT Eval No Charge No Complexity Low Certification Information Initial Certification Date 07/22/24 Ending Certification Date 10/20/24 Provider Signature Required Yes Provider Signature Shows Agreement With POC & Medical Necessity Physician NPI Number Write NPI# Here Physician Comment/Change : Physician Signature & Date Requested Please Sign/Date Here
== END 2024-07-29 14:32 | disposition home or self-care (01) ==
PROVIDERS: PCP Family Medicine; Visit Provider Family Medicine
DX: R26.81 Unsteadiness on feet (principal); R53.1 Weakness; Z51.89 Encounter for other specified aftercare
CPT/HCPCS: 97110; 97112; 97161